=== PATIENT | male | born 1955 | race Caucasian/White ===

== ENCOUNTER → 2016-02-22 | Outpatient (CLI) | payer OTHER, MEDICARE ==
[~2016-02-22] MED LIST: IOPAMIDOL (ISOVUE 370) 100 ML BTL IV ONE
[2016-02-22 15:02] LABS: CREATININE 1.1 mg/dL (0.7-1.3); GLOMERULAR FILTRATION RATE > 60
--- NOTE | 2016-02-22 17:31 | CT ---
CT Angiogram of the Abdomen and Pelvis, With Bilateral Lower Extremity Runoff Angiogram Indication: PVD, with severe claudication and noncompressible ABIs. Technique: 1.25-mm thin axial images are performed from the lung bases to the ankles during intraven ous contrast injection of 100 mL of Isovue-370. Coronal and parasagittal reformatted images are revi ewed on a separate workstation. Dose reduction techniques were utilized. Comparison: None. Findings CT Angiogram of the Abdomen and Pelvis: The suprarenal abdominal aorta is unremarkable. There is mi ld narrowing of the celiac access. The SMA is patent. The renal arteries are patent. The infrarena l abdominal aorta is patent, with some circumferential calcification. The ALEXIS is patent. The right common iliac artery is patent. The right internal iliac artery is patent. The right exter nal iliac artery is patent. There are surgical changes in the groin. Left common iliac artery, internal iliac artery, and external iliac artery are patent. Runoff Angiogram Right runoff: There is a high-grade stenosis of the profunda femoral artery origin from eccentric ca lcification. The superficial femoral artery origin is occluded. There is a ring fem distal bypass g raft that ties into the above-knee popliteal artery. The above-knee popliteal artery is patent. The re are some diffuse atherosclerotic changes of the popliteal artery, which is highly stenotic in the vessel above the knee joint. The below-knee popliteal artery is patent. There is diffuse calcified disease in the runoff vessel, with two-vessel runoff on the delayed imaging via the PT and peroneal. The AP is occluded. The peroneal reconstitutes the dorsalis pedis. Left runoff: The left common femoral artery is diffusely calcified. There is a stent from the SFA o rigin through the proximal popliteal. The stent appears highly stenotic at its origin and highly kaiden notic at the distal end. There are 2 or 3 overlapping stents throughout the SFA. Flow within the st ent or in stent restenosis is not definitely present, however, the stent obscures some of the intralu mayo fine detail. Flow in the popliteal artery is poor even on the delayed films. Below-knee runof f is diffusely calcified, however, there is flow in the PT and the AT on the reconstructed imaging an d a very small but patent peroneal artery. CT Abdomen and Pelvis: The lung bases are clear. There is fatty infiltration of the liver. The por enrique vein is patent. The spleen is unremarkable. The pancreas is unremarkable. The adrenals and kid neys are within normal limits. Small bowel and colon are unremarkable. There is an ileostomy in the right lower quadrant, and the rectum and sigmoid have been previously resected. The bones exhibit d egenerative changes. 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 Impressions 1. No evidence of inflow disease. 2. The right femoral-popliteal bypass has some mild narrowing at the ostia. Below the anastomosis i s a high-grade stenosis in the popliteal artery and diffusely diseased two-vessel runoff via the post erior tibial and peroneal artery. 3. There is diffuse stenting of the SFA, with a high-grade stenosis at or above the ostia of the painting dem stents and just beyond the outflow in the upper popliteal artery. Below-knee runoff is small and diffusely diseased but remains three-vessel to the foot.
== END ==
LOC: FIMAGING 13:54
PROVIDERS: ATTEND Internal Medicine Interventional Cardiology
DX: I74.3 Embolism and thrombosis of arteries of the lower extremities (principal); I73.9 Peripheral vascular disease, unspecified
CPT/HCPCS: 75635; Q9967

== ENCOUNTER 2016-04-01 07:04 | Observation (INO) | payer OTHER, MEDICARE ==
[2016-04-01] MEDS ORDERED: DIAZEPAM 5 MG TAB PO ONE (07:16)
[2016-04-01] MEDS ORDERED: ASPIRIN EC 325 MG TAB PO ONE ×2 (07:16→07:48)
[2016-04-01] MEDS ORDERED: FAMOTIDINE 20 MG TAB PO ONE (07:16)
[2016-04-01] MEDS ORDERED: NS 1,000 ML IV ONE (07:16)
[2016-04-01] MEDS ORDERED: diphenhydrAMINE 25 MG CAP PO ONE ×2 (07:16→07:47)
--- NOTE | 2016-04-01 07:41 | CPEKG ---
Heart Rate: 81 RR Interval: 741 P-R Interval: 180 QRSD Interval: 84 QT Interval: 376 QTC Interval: 437 P [place]: 14 QRS [place]: 50 T Wave [place]: 50 EKG Severity - ABNORMAL ECG - EKG Impression: SINUS RHYTHM EKG Impression: ST ELEVATION SUGGESTS PERICARDITIS Electronically Signed By: Evan Bright 01-Apr-2016 08:26:32
[2016-04-01] MEDS ORDERED: FAMOTIDINE 20 MG TAB ONE (07:47)
[2016-04-01] MEDS ORDERED: DIAZEPAM 5 MG TAB ONE (07:48)
[2016-04-01 08:12] LABS: % IMMATURE GRANULYOCYTES 0.6 % (0.0-1.1); ABSOLUTE IMMATURE GRANULOCYTES 0.04 10^3/uL (0.00-0.10); ADD DIFF? NO; ADD MORPH? NO; ADD SCAN? NO; ATYPICAL LYMPHOCYTE FLAG 0 (0-99); FRAGMENT RBC FLAG 0 (0-99); HEMATOCRIT 38.1 % (40.0-51.0); HEMOGLOBIN 12.6 g/dL (13.7-17.5); LEFT SHIFT FLG 0 (0-99); LIPEMIA HEMOLYSIS FLAG 80 (0-99); MEAN CELL HEMOGLOBIN CONCENTR. 33.1 g/dL (32.4-36.7); MEAN CELL VOLUME 87.6 fL (81.5-99.8); MEAN PLATELET VOLUME 11.7 fL (8.7-11.7); PLATELET CLUMPS FLAG 0 (0-99); PLATELET COUNT 118 10^3/uL (150-400); RED BLOOD CELL COUNT 4.35 10^6/uL (4.40-6.38); RED CELL DISTRIBUTION WIDTH 13.2 % (11.5-15.2)
[2016-04-01 08:22] LABS: INR 1.05 (0.83-1.16); PROTIME(PATIENT) 13.6 SEC (12.0-15.0)
[2016-04-01 09:01] LABS: ANION GAP 13 mEq/L (8-16); CALCIUM 10.6 mg/dL (8.5-10.4); CARBON DIOXIDE 19 mEq/l (22-31); CHLORIDE 107 mEq/L (97-110); CHOLESTEROL 117 mg/dL (140-220); CHOLESTEROL/HDL RATIO 4.18 RATIO (1.00-4.97); CREATININE 0.9 mg/dL (0.7-1.3); GLOMERULAR FILTRATION RATE > 60; GLUCOSE 253 mg/dL (70-100); HIGH DENSITY LIPOPROTEIN 28 mg/dL (40-65); LDL/HDL RATIO 0.46 RATIO (1.00-3.64); LOW DENSITY LIPOPROTEIN 13 mg/dL (80-100); MAGNESIUM 1.2 mg/dL (1.6-2.3); NON-HIGH DENSITY LIPOPROTEIN 89 mg/dL (90-129); POTASSIUM 4.6 mEq/L (3.5-5.2); SODIUM 139 mEq/L (134-144); TRIGLYCERIDE 382 mg/dL (40-150); VERY LOW DENSITY LIPOPROTEINS 76 mg/dL (8-25)
[2016-04-01] MEDS ORDERED: LIDOCAINE 1% 30 ML SDV ONE ×2 (09:35→12:02)
[2016-04-01] MEDS ORDERED: MIDAZOLAM 2 MG/2 ML VIAL ONE ×2 (09:35→10:57)
[2016-04-01] MEDS ORDERED: fentaNYL 100 MCG/2 ML INJ ONE ×2 (09:35→10:57)
[2016-04-01] MEDS ORDERED: IOPAMIDOL (ISOVUE-300) 200 ML BTL IV ONE ×3 (09:36→12:17)
[2016-04-01] MEDS ORDERED: HEPARIN 10,000 UNIT/10 ML MDV ONE ×2 (10:00→11:19)
--- NOTE | 2016-04-01 10:03 | SUROPNOTE ---
[facility] Operative Report - Surgery Date of Procedure: 04/01/16 Indication: This patient is a 60 year old man, with a history of severe peripheral vascular disease status-post left SFA stenting in 03/2013 and subsequent right femoral-popliteal bypass, profundoplasty, and femoral endarterectomy, presenting with moderate-severe lifestyle limiting claudication symptoms in bilateral lower extremities, somewhat worse in the left lower extremity. Patient states he went for a walk the other day and had to be picked up by a friend due to severe cramping in his left calf. Abdomen CTA with bilateral lower extremity runoff demonstrated that the right femoral-popliteal bypass has some mild narrowing at the ostia and below the anastomosis is a high- grade stenosis in the popliteal artery and diffusely diseased two-vessel runoff via the posterior tibial and peroneal artery. Furthermore, there is diffuse stenting of the SFA, with a high-grade stenosis at or above the ostia of the tandem stents and just beyond the outflow in the upper popliteal artery. Peripheral intervention will be attempted due to lifestyle limiting claudication and CTA evidence of recurrent high-grade stenosis in bilateral lower extremities. Procedures performed: 1. Right femoral access 2. Left iliac and femoral angiography via contralateral approach 3. Left lower extremity runoff angiography via contralateral approach 4. Jetstream atherectomy and drug-coated balloon angioplasty of the distal left superficial femoral artery and proximal popliteal artery. 5. Drug-coated balloon angioplasty of the distal left common femoral artery 6. Left femoral access 7. Right iliac and femoral angiography via contralateral approach 8. Right lower extremity runoff angiography via contralateral approach 9. Drug-coated balloon angioplasty of the distal right superficial femoral artery and proximal popliteal artery. Description of procedure: Description, risks, benefits and alternatives were discussed in detail. Informed consent was obtained. The patient was brought to the catheterization laboratory where a timeout was performed. The both groins were sterilely prepped and draped. 2% lidocaine utilized for local anesthetic. A 6-[place] hemostatic sheath placed right femoral artery utilizing modified Seldinger technique. A 6-[place] ALEXIS catheter was then placed into the right iliofemoral system and engaged the left common iliac. A stiff-angled Glidewire was placed. Intravenous heparin was administered. The ALEXIS catheter was exchanged for a 5- [place] Straight Flush catheter. Angiography was then performed via the straight flush catheter, which demonstrated moderate-severe disease in the distal common femoral, proximal to the left SFA stent. Left lower extremity runoff angiography was performed with Power Injection through the straight flush catheter, which demonstrated a heavily calcified distal left SFA/proximal popliteal lesion. Through the straight flush catheter, a Super-Stiff Amplatz wire was placed and the straight flush catheter was removed. The sheath was exchanged for a 7-[place] angled up-and-over sheath, however the sheath would not advance secondary to atherosclerotic disease. An 8- [place] dilator was utilized and instead a 7-[place] African Cook 55cm Flexor Check-Flow introducer was placed in the left SFA. Next, the decision was made to perform Jetstream Atherectomy of the heavily calcified distal SFA lesion. A short Samurai wire was placed in the popliteal. A SpiderFX embolic protection device was advanced over the Samurai wire and was positioned in the popliteal, distal to the disease area. Samurai wire was removed and the SpiderFX was deployed. Then, the Jetstream XC catheter was placed and atherectomy was performed in the distal SFA/proximal popliteal in both the blades down and blades up configuration until there was no drop in r.p.m. The atherectomy catheter was then removed. Repeat angiography was performed, which demonstrated satisfactory result on the heavily calcified lesion. Next, a 6.0mm x 100mm Lutonix 035 drug coated balloon was placed in the distal SFA/proximal popliteal to cover the area of disease. This was inflated to 7 atmospheres for three minutes. Balloon was removed. Repeat angiography demonstrated excellent result. Following this, attention was turned to the proximal lesion, localized to the distal left common femoral artery. The SpiderFX filter was retrieved with the filter basket retrieval sheath and the filter was removed. Amplatz wire was re-introduced and placed into the left SFA. The sheath was pulled back. A 7.0mm x 40mm Lutonix 035 drug-coated balloon was positioned to cover the area of proximal disease. This was inflated to 7 atmospheres for three minutes. Balloon was removed. The Straight Flush catheter was re-introduced and repeat runoff angiography was performed with power injection, which demonstrated excellent result and no additional areas of severe disease. Amplatz wire was re-introduced. The straight flush catheter was removed. The up-and-over sheath was removed and exchanged for a short 8-[place] sheath. Next, attention was turned to the left groin to prepare for right lower extremity peripheral intervention. 2% lidocaine utilized for local anesthetic. A 6-[place] hemostatic sheath placed left femoral artery utilizing modified Seldinger technique. A 6-[place] ALEXIS catheter was then placed into the left iliofemoral system and engaged the right common iliac. A stiff-angled Glidewire was placed. The ALEXIS catheter was exchanged for a 5-[place] Straight Flush catheter. The catheter was advanced to the femoral-popliteal bypass graft. Runoff angiography was then performed via the straight flush catheter with power injection, which demonstrated a high-grade stenosis in the distal SFA, distal to the graft anastomosis. There is approximately 60% disease proximal to the bypass graft, however this appeared to be mild by CT and is close to the right groin sheath site, making intervention challenging at this time. Decision to not intervene on the proximal lesion was felt to be reasonable, as it appears mild by CT and angiography. The lesion appeared amenable to drug- coated balloon angioplasty. Through the straight flush catheter, a Super-Stiff Amplatz wire was placed and the straight flush catheter was removed. The sheath was exchanged for a 6-[place] straight up-and-over sheath. A diagnostic 6-Central African Evert Right-4 catheter was utilized to help advance the wire. The wire was advanced distal to the knee. JR4 catheter was removed. A 6mm x 100mm Lutonix 035 drug-coated balloon was chosen and positioned over the lesion in the right distal SFA. This was inflated to 7 atmospheres for three minutes. Balloon was removed. Straight Flush catheter was reintroduced over the wire. Repeat angiography was performed through the Straight Flush catheter, demonstrating satisfactory result. The up-and-over sheath was removed and exchanged for a short 6-[place] sheath. Protamine was administered to reverse heparin. Both groin sheaths were removed under manual pressure. Findings: 1. Hemodynamics: Aortic pressure 128/64, mean of 83. 2. Left lower extremity runoff angiography: The left common femoral artery contains a calcified eccentric 70% stenosis. The stents in the left SFA are widely patent with up to 20% stenosis in the distal stent. There is a long, eccentric calcified 80-90% stenosis in the unstented distal SFA extending into the proximal popliteal. The tibioperoneal trunk is unobstructed. The anterior tibial and posterior tibials are patent. There is diffuse distal posterior tibial disease. Peroneal vessel ends at the mid calf 3. Right lower extremity runoff angiography: There is a 60% stenosis in the proximal SFA at the femoral-popliteal graft anastomosis. The SFA is totally occluded and fills from the patent femoral-popliteal graft. At the distal end of the femoral-popliteal graft anastomosis, extending from the distal SFA to the popliteal, is a calcified eccentric 80% stenosis. The tibioperoneal trunk contains 60% disease. 4. Percutaneous intervention: Following atherectomy and drug coated balloon angioplasty (as described above), there is no residual stenosis in the left common femoral or the left distal superficial femoral artery. Following drug- coated balloon angioplasty in the distal right SFA and proximal popliteal, there is approximately 30% residual stenosis with satisfactory result in this vessel. Overall Impression: 1. Long, eccentric calcified 80-90% stenosis in the unstented distal SFA extending into the proximal popliteal, treated with Jet Stream atherectomy and drug-coated balloon angioplasty, with 0% residual stenosis post-intervention. 2. Left common femoral artery calcified eccentric 70% stenosis, treated with drug-coated balloon angioplasty, with 0% residual stenosis post-intervention. 3. Calcified eccentric 80% stenosis at the distal end of the femoral-popliteal graft anastomosis, extending from the distal SFA to the popliteal, treated with drug-coated balloon angioplasty, with approximately 30% residual stenosis post- intervention. 4. 60% stenosis in the proximal SFA at the femoral-popliteal graft anastomosis , which appeared mild by CT. Intervention was not performed due to the mild severity of the disease and the location of the disease close to the right groin sheath site. Plan: 1. Continue aggressive risk modification. 2. Close clinical follow up. If the patient continues to experience claudication symptoms, then intervention can be considered of the proximal right SFA. 3. Walking program. 4. Follow patient symptomatically and with intermittent ankle brachial index. Portions of this report were documented by a medical writer. I have reviewed this report and agree with the documentation. Report scribed for Dr. Levar Galeana. Report scribed by Claudia Bedolla.
[2016-04-01] MEDS ORDERED: VERAPAMIL 5 MG/2 ML VIAL ONE (11:11)
[2016-04-01] MEDS ORDERED: NITROGLYCERIN/D5W/250 ML BOTTLE IV ONE (11:12)
[2016-04-01] MEDS ORDERED: PROTAMINE SULFATE 50 MG/5 ML VIAL IVP ONE (11:19)
[2016-04-01] MEDS ORDERED: MONTELUKAST SODIUM 10 MG TAB PO PRN (13:31)
[2016-04-01] MEDS ORDERED: CLOPIDOGREL BISULFATE 75 MG TAB ONE (13:32)
[2016-04-01] MEDS ORDERED: NITROGLYCERIN 0.4 MG BTL SL PRN (13:33)
[2016-04-01] MEDS ORDERED: OXYCODONE/APAP 5/325 TAB PO PRN (13:33)
[2016-04-01] MEDS ORDERED: HYDROCODONE/APAP 5/325 TAB PO PRN (13:33)
[2016-04-01] MEDS ORDERED: ATROPINE SULFATE 1 MG/10 ML SYR IVP PRN (13:33)
[2016-04-01] MEDS ORDERED: LORazepam 2 MG/ML INJ IVP PRN (13:33)
[2016-04-01] MEDS ORDERED: TEMAZEPAM 15 MG CAP PO PRN (13:33)
[2016-04-01] MEDS ORDERED: ONDANSETRON 4 MG/2 ML VIAL IVP PRN (13:33)
[2016-04-01] MEDS ORDERED: 1/2 NS 1,000 ML IV SCH (14:00)
[2016-04-01] MEDS ORDERED: PROTOCOL MAGNESIUM 1 DOSE IV PRN (15:33)
[2016-04-01] MEDS ORDERED: MAGNESIUM SULF 2 GM/WATER 50 ML IV ONE (15:40)
[2016-04-01] MEDS ORDERED: PREGABALIN 100 MG CAP PO SCH (16:00)
[2016-04-01] MEDS: INSULIN LISPRO 100 UNIT/ML SC SCH ×2 (16:33→19:57)
[2016-04-01] MEDS: PRASUGREL HCL 10 MG TAB PO SCH (16:33)
[2016-04-01] MEDS: OXYCODONE/APAP 5/325 TAB PO PRN ×2 (16:33→22:10)
[2016-04-01] MEDS ORDERED: TICAGRELOR 90 MG TAB PO SCH (21:00)
[2016-04-01] MEDS ORDERED: INSULIN GLARGINE HUM REC ANLOG 40 UNIT SQ SCH (21:00)
[2016-04-01] MEDS ORDERED: INSULIN GLARGINE 100 UNITS/ML SYRINGE SC SCH (21:00)
[2016-04-01] MEDS: traZODone 50 MG TAB PO SCH ×2 (21:27→22:10)
[2016-04-01] MEDS: FLUTICASONE/SALMETER 250/50MCG DISKUS IH SCH (21:42)
[2016-04-01] MEDS: PREGABALIN 100 MG CAP PO SCH (22:09)
[2016-04-02 03:48] VITALS: O2SAT 92
[2016-04-02 05:34] LABS: % IMMATURE GRANULYOCYTES 0.3 % (0.0-1.1); ABSOLUTE IMMATURE GRANULOCYTES 0.02 10^3/uL (0.00-0.10); ADD DIFF? NO; ADD MORPH? NO; ADD SCAN? NO; ATYPICAL LYMPHOCYTE FLAG 0 (0-99); FRAGMENT RBC FLAG 0 (0-99); HEMATOCRIT 34.5 % (40.0-51.0); HEMOGLOBIN 11.2 g/dL (13.7-17.5); LEFT SHIFT FLG 0 (0-99); LIPEMIA HEMOLYSIS FLAG 80 (0-99); MEAN CELL HEMOGLOBIN 29.9 pg (27.9-34.1); MEAN CELL HEMOGLOBIN CONCENTR. 32.5 g/dL (32.4-36.7); MEAN PLATELET VOLUME 11.9 fL (8.7-11.7); PLATELET CLUMPS FLAG 10 (0-99); PLATELET COUNT 94 10^3/uL (150-400); RED BLOOD CELL COUNT 3.75 10^6/uL (4.40-6.38); RED CELL DISTRIBUTION WIDTH 13.7 % (11.5-15.2)
[2016-04-02 05:53] LABS: ALBUMIN 3.5 g/dL (3.5-5.0); ANION GAP 7 mEq/L (8-16); ASPARTATE AMINOTRANSFERASE 105 IU/L (17-59); BILIRUBIN,TOTAL 0.5 mg/dL (0.1-1.4); CALCIUM 8.7 mg/dL (8.5-10.4); CARBON DIOXIDE 23 mEq/l (22-31); CHLORIDE 105 mEq/L (97-110); CREATININE 0.9 mg/dL (0.7-1.3); GLOMERULAR FILTRATION RATE > 60; GLUCOSE 249 mg/dL (70-100); LACTATE DEHYDROGENASE 652 IU/L (313-618); MAGNESIUM 1.3 mg/dL (1.6-2.3); POTASSIUM 5.4 mEq/L (3.5-5.2); SODIUM 135 mEq/L (134-144)
[2016-04-02 07:38] VITALS: BP 136/63; PULSE 70; RESP 12; TEMP 97.9
[2016-04-02] MEDS ORDERED: MAGNESIUM SULF 2 GM/WATER 50 ML IV ONE (08:05)
[2016-04-02] MEDS: INSULIN LISPRO 100 UNIT/ML SC SCH (08:25)
[2016-04-02] MEDS: PRASUGREL HCL 10 MG TAB PO SCH (08:25)
[2016-04-02] MEDS: PREGABALIN 100 MG CAP PO SCH (08:25)
[2016-04-02] MEDS ORDERED: ASPIRIN EC 81 MG TAB PO SCH (09:00)
[2016-04-02] MEDS ORDERED: PRASUGREL HCL 10 MG TAB PO SCH (09:00)
[2016-04-02] MEDS ORDERED: INSULIN GLARGINE 100 UNITS/ML SYRINGE SC SCH (09:00)
[2016-04-02] MEDS ORDERED: INSULIN GLARGINE HUM REC ANLOG 16 UNIT SQ SCH (09:00)
[2016-04-02] MEDS ORDERED: NEBIVOLOL HCL 5 MG TAB PO SCH (09:00)
[2016-04-02] MEDS ORDERED: ATORVASTATIN CALCIUM 40 MG TAB PO SCH (09:00)
--- NOTE | 2016-04-02 09:24 | CPEKG ---
Heart Rate: 57 RR Interval: 1053 P-R Interval: 208 QRSD Interval: 108 QT Interval: 428 QTC Interval: 417 P [place]: -2 QRS [place]: 42 T Wave [place]: 52 EKG Severity - BORDERLINE ECG - EKG Impression: SINUS RHYTHM EKG Impression: DIFFUSE ST ELEVATION ?PERICARDITIS Electronically Signed By: Evan Bright 01-Apr-2016 23:47:49
[2016-04-02] MEDS: FLUTICASONE/SALMETER 250/50MCG DISKUS IH SCH (09:49)
[2016-04-02] MEDS: OXYCODONE/APAP 5/325 TAB PO PRN (09:52)
--- NOTE | 2016-04-02 11:38 | GDS ---
[f rep st] DISCHARGE SUMMARY DISCHARGE DIAGNOSES: 1. Severe left lower extremity claudication, moderate right lower extremity claudication. 2. Peripheral vascular disease status post previous left SFA stent and right femoral popliteal bypa ss. 3. Diabetes. 4. Hyperlipidemia. 5. Hypertension. 6. Previous cigarette smoking. 7. Carotid artery disease. 8. Peripheral neuropathy. 9. Elevated liver function tests; etiology unknown. PROCEDURES: 1. Bilateral femoral artery access. 2. Left lower extremity runoff angiography. 3. Jet stream atherectomy and drug coated balloon angioplasty of distal left superficial femoral ar ayo and proximal popliteal artery. 4. Drug coated balloon angioplasty of left common femoral artery and proximal left superficial femo ral artery. 5. Right iliac and lower extremity angiography with runoff. 6. Drug coated balloon angioplasty of distal right superficial femoral artery and proximal poplitea l artery. HOSPITAL COURSE: This 60-year-old man had previous left SFA stenting and right femoral/popliteal by pass approximately 3 years ago. He also had profundoplasty and femoral endarterectomy on the right. He has done extremely well until recently when he developed lifestyle-limiting left greater than r ight recurrent claudication. CT angiography demonstrated new progressive disease which was quite se ortiz distal to the stent in the left SFA extending into the popliteal. There was also some progress eduardo disease in the left common femoral, extending into the proximal stent in the left SFA. On the r ight side, the femoral popliteal bypass was patent with new progressive, high-grade disease in the d istal SFA and proximal popliteal. There was also moderate disease at the ostium of the femoral-popl iteal bypass which did not appear to be flow limiting. The patient was brought to the hospital for percutaneous intervention. Initial right femoral access with contralateral approach to the left leg was achieved, confirming findings of CT angiogram. For details please see the catheterization report. Using filter wire distal protection with a spider F X filter, patient had jet stream atherectomy in the SFA and popliteal. There was extensive plaque c aptured by the filter. Patient then had 6 mm x 100 mm drug coated balloon, and an excellent result with no residual stenosis and no complication. The common femoral lesion extending into the proxima l superficial femoral was treated with a 7 mm x 40 mm drug coated balloon with excellent result. left femoral access was obtained with contralateral approach to the right. Angiography was perfo rmed, and 6 mm x 100 mm drug coated balloon was used in the SFA and proximal popliteal again with an excellent result. The ostial graft disease and profunda disease were felt to be noncritical and we re not treated. Patient was recovered overnight with stable groin and resolution of his claudicatio n by at least 90% with walking. He was quite happy. He was then discharged. Of note, his laborato ry tests showed some elevation of liver function tests which appears to be a chronic intermittent pr oblem which will need outpatient followup. DISCHARGE MEDICATIONS: These are completely unchanged from his home medication. His metformin is o n hold for 72 hours. He is on Effient 10 mg daily which we will continue for 1 month. Long-term du al anti-platelet therapy is likely not necessary at this point. FOLLOWUP PLANS: He should be seen in the office within 1 week. We should perform repeat complete l iver function testing and review his chart for further workup of his liver function test abnormality . His lipids are under control with an LDL of 13. /[id number]/MODL
== END 2016-04-02 12:26 | disposition home or self-care (01) ==
LOC: FCATH 07:04 → F2W 09:47 → UNDOADMOB 09:47 → F2W 14:50
PROVIDERS: ADMIT Internal Medicine Interventional Cardiology; ATTEND Internal Medicine Interventional Cardiology
PROC: 047L3Z1 Dilation of Left Femoral Artery using Drug-Coated Balloon, Percutaneous Approach (ICD-10-PCS; principal; 2016-04-01)
PROC: 047N3Z1 Dilation of Left Popliteal Artery using Drug-Coated Balloon, Percutaneous Approach (ICD-10-PCS; 2016-04-01)
PROC: 04CL3ZZ Extirpation of Matter from Left Femoral Artery, Percutaneous Approach (ICD-10-PCS; 2016-04-01)
PROC: 04CN3ZZ Extirpation of Matter from Left Popliteal Artery, Percutaneous Approach (ICD-10-PCS; 2016-04-01)
PROC: 047K3Z1 Dilation of Right Femoral Artery using Drug-Coated Balloon, Percutaneous Approach (ICD-10-PCS; 2016-04-01)
PROC: 047M3Z1 Dilation of Right Popliteal Artery using Drug-Coated Balloon, Percutaneous Approach (ICD-10-PCS; 2016-04-01)
DX: I70.213 Atherosclerosis of native arteries of extremities with intermittent claudication, bilateral legs (principal); I73.9 Peripheral vascular disease, unspecified; R94.5 Abnormal results of liver function studies; I70.92 Chronic total occlusion of artery of the extremities; E78.5 Hyperlipidemia, unspecified; I10 Essential (primary) hypertension; I77.9 Disorder of arteries and arterioles, unspecified; G60.9 Hereditary and idiopathic neuropathy, unspecified; I25.10 Atherosclerotic heart disease of native coronary artery without angina pectoris; Z79.4 Long term (current) use of insulin; E11.40 Type 2 diabetes mellitus with diabetic neuropathy, unspecified; Z82.49 Family history of ischemic heart disease and other diseases of the circulatory system; G47.33 Obstructive sleep apnea (adult) (pediatric); Z87.891 Personal history of nicotine dependence; Z85.038 Personal history of other malignant neoplasm of large intestine
CPT/HCPCS: 37224; 37225; 75716; 93005; C1724; C1769; C1884; C2623; J1644; J1815; J2250; J2720; J3010; Q9967

== ENCOUNTER 2016-09-27 14:22 | Inpatient (IN) | payer OTHER, MEDICARE ==
--- NOTE | 2016-09-27 14:53 | CPEKG ---
Heart Rate: 105 RR Interval: 571 P-R Interval: 160 QRSD Interval: 84 QT Interval: 352 QTC Interval: 466 P [place]: 11 QRS [place]: 48 T Wave [place]: 74 EKG Severity - OTHERWISE NORMAL ECG - EKG Impression: SINUS TACHYCARDIA Electronically Signed By: Capri Curiel 27-Sep-2016 23:05:49
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
[2016-09-27] MEDS ORDERED: NS 500 ML IV ONE (15:11)
[2016-09-27 15:48] LABS: % IMMATURE GRANULYOCYTES 0.5 % (0.0-1.1); ABSOLUTE IMMATURE GRANULOCYTES 0.05 10^3/uL (0.00-0.10); ADD DIFF? NO; ADD MORPH? NO; ADD SCAN? NO; ATYPICAL LYMPHOCYTE FLAG 0 (0-99); FRAGMENT RBC FLAG 0 (0-99); HEMATOCRIT 35.3 % (40.0-51.0); HEMOGLOBIN 11.4 g/dL (13.7-17.5); LEFT SHIFT FLG 0 (0-99); LIPEMIA HEMOLYSIS FLAG 80 (0-99); MEAN CELL HEMOGLOBIN 29.4 pg (27.9-34.1); MEAN CELL HEMOGLOBIN CONCENTR. 32.3 g/dL (32.4-36.7); PLATELET CLUMPS FLAG 0 (0-99); PLATELET COUNT 218 10^3/uL (150-400); RED BLOOD CELL COUNT 3.88 10^6/uL (4.40-6.38); RED CELL DISTRIBUTION WIDTH 14.6 % (11.5-15.2)
[2016-09-27 15:55] LABS: APTT 23.2 SEC (23.0-38.0); INR 1.04 (0.83-1.16); PROTIME(PATIENT) 13.5 SEC (12.0-15.0)
[2016-09-27 15:56] LABS: ALANINE AMINOTRANSFERASE 67 IU/L (21-72); ALBUMIN 4.2 g/dL (3.5-5.0); ALKALINE PHOSPHATASE 136 IU/L (38-126); ANION GAP 20 mEq/L (8-16); ASPARTATE AMINOTRANSFERASE 74 IU/L (17-59); BILIRUBIN,TOTAL 0.6 mg/dL (0.1-1.4); CALCIUM 9.9 mg/dL (8.5-10.4); CARBON DIOXIDE 15 mEq/l (22-31); CHLORIDE 105 mEq/L (97-110); CREATININE 1.4 mg/dL (0.7-1.3); GLOMERULAR FILTRATION RATE 52; GLUCOSE 230 mg/dL (70-100); POTASSIUM 5.1 mEq/L (3.5-5.2); SODIUM 140 mEq/L (134-144); TOTAL PROTEIN 6.9 g/dL (6.3-8.2)
[2016-09-27] MEDS ORDERED: ONDANSETRON 4 MG/2 ML VIAL IVP ONE (16:26)
[2016-09-27 16:34] LABS: BILIRUBIN-CONJUGATED 0.5 mg/dL (0.0-0.5); BILIRUBIN-UNCONJUGATED 0.1 mg/dL (0.0-1.1)
[2016-09-27] MEDS ORDERED: IOPAMIDOL (ISOVUE-300) 100 ML BTL ONE (16:43)
[2016-09-27] MEDS ORDERED: NS 500 ML IV SCH (17:00)
[2016-09-27] MEDS ORDERED: ACETAMINOPHEN 650 MG SUPP PR PRN (17:02)
[2016-09-27] MEDS ORDERED: ONDANSETRON 4 MG/2 ML VIAL IVP PRN (17:02)
[2016-09-27] MEDS ORDERED: NS 1,000 ML IV SCH (17:15)
[2016-09-27] MEDS ORDERED: FAMOTIDINE 20 MG/NACL 50 ML IV ONE (17:18)
[2016-09-27] MEDS ORDERED: PANTOPRAZOLE SODIUM 80 MG in NS 100 ML IV ONE (17:18)
[2016-09-27] MEDS ORDERED: ERYTHROMYCIN LACTOBIONATE 250 MG in NS 100 ML IV ONE (17:20)
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
[2016-09-27] MEDS ORDERED: PROPOFOL/EMULSION 500 MG/50 ML BOTTLE IV ONE (20:06)
[2016-09-27] MEDS ORDERED: MIDAZOLAM 2 MG/2 ML VIAL ONE (20:16)
[2016-09-27] MEDS ORDERED: LR 500 ML IV PRN (20:36)
[2016-09-27] MEDS ORDERED: NALOXONE HCL 0.4 MG/ML INJ IVP PRN (20:36)
[2016-09-27] MEDS ORDERED: fentaNYL 100 MCG/2 ML INJ IVP PRN (20:36)
--- NOTE | 2016-09-27 20:38 | POSTANESTH ---
Post Anesthetic Evaluation Cardiovascular Status: Similar to Pre-Op Cond, Tx Hyper/Hypo-tension Respiratory Status: Normal, Stable Level of Consciousness/Mental Status: Can Participate in Eval Pain Control: Adequate, Prn Tx Ordered Nausea/Vomiting Control: Adequate, Prn Tx Ordered Complications Possibly Related to Anesthesia: None Noted
[2016-09-27] MEDS ORDERED: DULoxetine 20 MG CAP PO SCH (21:00)
[2016-09-27] MEDS ORDERED: GOLYTELY 4000 ML BTL PO ONE (21:30)
--- NOTE | 2016-09-27 22:41 | SOAPPROG ---
SOAP Progress Note Assessment/Plan: Assessment: Plan: 09/27/16 22:40 GI note See dictated consult and procedure note. No cause of bleeding noted on EGD. No blood visualized. Will proceed with colonoscopy in am. R/b/a discussed Objective: Vital Signs Temp Pulse Resp BP Pulse Ox 36.5 C 81 17 100/48 L 96 09/27/16 22:12 09/27/16 22:12 09/27/16 22:12 09/27/16 22:12 09/27/16 22:12 09/26/16 09/27/16 09/28/16 05:59 05:59 05:59 Intake Total 500 Balance 500 PT 13.5 SEC (12.0-15.0) 09/27/16 14:40 INR 1.04 (0.83-1.16) 09/27/16 14:40 ICD10 Worksheet Patient Problems: Problems Problem Status Onset Peripheral vascular disease Acute Hypotension Acute GI bleed Acute
[2016-09-27] MEDS ORDERED: D50W 25 GM/50 ML SYR IVP PRN (22:56)
[2016-09-27] MEDS ORDERED: INSULIN GLARGINE 100 UNITS/ML SYRINGE SC ONE (23:15)
[2016-09-27] MEDS: OXYCODONE/APAP 5/325 TAB PO PRN (23:21)
[2016-09-27] MEDS: PREGABALIN 100 MG CAP PO SCH ×2 (23:31→23:38)
--- NOTE | 2016-09-27 23:34 | GHP ---
[f rep st] HISTORY AND PHYSICAL DATE OF ADMISSION: 09/27/2016 CHIEF COMPLAINT: Bloody ostomy output. HISTORY OF PRESENT ILLNESS: A 60-year-old male with a history of colon cancer, status post colostom y, who presents with bloody output from his ostomy bag that began approximately 6 p.m. the evening p rior to presentation. The patient reports that he has had several episodes of slightly bloody outpu t, spontaneously resolved on its own, over the course of his ostomy life. He notes that he was havi ng persistent bloody output, reporting 4 full bags of blood, in his ostomy before presenting. With that he was experiencing some lightheadedness. He denied chest pain associated with this. Denied p alpitations. Denied shortness of breath. Denied abdominal pain, with the exception of slight tende rness at the superior margin of his ostomy. He is actively reporting lower extremity pain, which is intermittent for him. PAST MEDICAL HISTORY: 1. Colon cancer, status post colostomy. 2. Severe peripheral vascular disease, status post both femoral-popliteal bypass and recent stentin g. 3. Diabetes. 4. Hyperlipidemia. 5. Hypertension. 6. Carotid artery disease. 7. Peripheral neuropathy. SOCIAL HISTORY: Negative for active tobacco. He does have a tobacco history. No alcohol, illicit drugs or marijuana. FAMILY HISTORY: Negative for peripheral vascular disease. REVIEW OF SYSTEMS: A 10-point review of systems is negative, with the exception of that reported in the HPI. ADVANCED DIRECTIVES: The patient wishes to be full cor, full tube. His girlfriend, Yvette, would be his medical decision maker. PHYSICAL EXAMINATION: VITAL SIGNS: Blood pressure 84/40, heart rate in the 100s at presentation, b reathing 17 per minute, 96% on room air, 36.5. GENERAL: This is a pleasant, middle-aged male in no acute distress. HEENT: Notable for dry mucous membranes. Eye exam is negative for any icterus. CARDIAC: The patient has regular rate and rhythm. PULMONARY: Good respiratory effort. Clear to a uscultation bilaterally. GASTROINTESTINAL: Positive bowel sounds. Abdomen is soft. Ostomy output does appear bloody. MUSCULOSKELETAL: Negative for any lower extremity edema. Pulses are difficul t to feel pedally, but the extremities are warm. SKIN: Negative for any rashes. NEUROLOGIC: He i s alert and oriented x3. PSYCHIATRIC: He is pleasant and cooperative on interview and examination. DATA: White count 9.1, hematocrit 35, hemoglobin 11 at presentation, platelet count of 218. Sodium 140, creatinine 1.4, BUN 31, blood glucose 230, alkaline phosphatase 136, AST 74. Blood occult is positive. CT of the abdomen, which I personally reviewed and interpreted: Shows no acute intraabdominal abnor malities. Radiology comments: Hint of circumferential wall thickening at the outside portion of the ostomy. ASSESSMENT AND PLAN: This is a 60-year-old male presenting with bright red blood per ostomy. 1. Acute gastrointestinal bleed. Bloody output has been persistent. The patient is presenting wit h tachycardia and hypotension, certainly concerning for a rapid bleed. The patient was provided wit h IV proton pump inhibitor and taken directly to the endoscopy suite. Gastroenterology reports no a cute findings on esophagogastroduodenoscopy. We will send stat hemoglobin and hematocrit now. Keep the patient n.p.o. and ready for prepping for colonoscopy tomorrow. We are holding antihypertensiv e medications and blood thinners in the setting of acute gastrointestinal bleed. 2. Anemia, secondary to acute blood loss. Suspect we are going to see a pronounced drop in the pat ient's hemoglobin on recheck. We will be prepared for blood transfusion. His hemodynamics are impr judd, however, after fluid resuscitation. 3. Acute hypotension, secondary to acute gastrointestinal bleed. The patient's blood pressures are slightly improved now, with systolics in the 100s after fluids. Again, check hemoglobin and hemato crit and anticipate the need for transfusion. 4. Sinus tachycardia, secondary to acute gastrointestinal bleed. This too has improved post fluid resuscitation. We will continue to monitor closely. 5. Diabetes. The patient's blood glucoses are in the 200s. Typically takes a higher dose of long- acting insulin at night, which we will reduce by 3/4 in anticipation of a day where he is unable to take adequate p.o. Can cover with sliding scale insulin as needed. 6. Severe peripheral vascular disease. I am holding the patient's aspirin, Effient, and cardiac me dications in the setting of acute bleed. We will treat with oral pain medications. 7. Hypertension. The patient is hypotensive at presentation. 8. Hyperlipidemia. We will hold the statin overnight. Can resume when normal intake is resumed. 9. Prophylaxis. Contraindicated in the setting of acute gastrointestinal bleed. 10. Diet. N.p.o. in anticipation of esophagogastroduodenoscopy. DISPOSITION: I expect greater than 2 midnights as the patient is presenting with unstable vital sig ns and acute gastrointestinal bleed, will require acute care in the stepdown unit overnight for stab ilization and diagnostics. I have discussed the case with the emergency room physician and Gastroen terology. The patient will be triaged to the stepdown unit for care. /[id number]/MODL
[2016-09-28 00:08] LABS: HEMATOCRIT 24.4 % (40.0-51.0); HEMOGLOBIN 7.9 g/dL (13.7-17.5)
[2016-09-28 04:34] LABS: % IMMATURE GRANULYOCYTES 0.5 % (0.0-1.1); ABSOLUTE IMMATURE GRANULOCYTES 0.04 10^3/uL (0.00-0.10); ADD DIFF? NO; ADD MORPH? NO; ADD SCAN? NO; ATYPICAL LYMPHOCYTE FLAG 10 (0-99); FRAGMENT RBC FLAG 0 (0-99); HEMOGLOBIN 9.8 g/dL (13.7-17.5); LEFT SHIFT FLG 0 (0-99); LIPEMIA HEMOLYSIS FLAG 80 (0-99); MEAN CELL HEMOGLOBIN 29.7 pg (27.9-34.1); MEAN CELL HEMOGLOBIN CONCENTR. 32.7 g/dL (32.4-36.7); MEAN CELL VOLUME 90.9 fL (81.5-99.8); MEAN PLATELET VOLUME 12.1 fL (8.7-11.7); PLATELET CLUMPS FLAG 0 (0-99); PLATELET COUNT 121 10^3/uL (150-400); RED CELL DISTRIBUTION WIDTH 14.8 % (11.5-15.2)
[2016-09-28 04:43] LABS: ANION GAP 11 mEq/L (8-16); CALCIUM 8.5 mg/dL (8.5-10.4); CARBON DIOXIDE 22 mEq/l (22-31); CHLORIDE 104 mEq/L (97-110); CREATININE 1.5 mg/dL (0.7-1.3); GLOMERULAR FILTRATION RATE 48; GLUCOSE 136 mg/dL (70-100); POTASSIUM 4.7 mEq/L (3.5-5.2); SODIUM 137 mEq/L (134-144)
--- NOTE | 2016-09-28 05:10 | GPN ---
[f rep st] PROCEDURE NOTE DATE OF PROCEDURE: 09/27/2016 PROCEDURE: Esophagogastrododenoscopy with biopsy. INDICATIONS: The patient is a 60-year-old male with a history of colon cancer, status post resection, NSAID use who presents with complaints of bright red blood in his ostomy bag. He was tachycardic with a low blood pressure on arrival to the ER. He presents for further evaluation. CONSENT: Risks, benefits, and alternatives of the procedure were discussed in great detail with the patient. Risks of infection, bleeding, perforation, sedation were discussed. All questions answered. Informed consent obtained. MEDICATIONS: Propofol. Please see Anesthesiology record for details. ESTIMATED BLOOD LOSS: Insignificant. ESOPHAGOGASTRODUODENOSCOPY EXAMINATION: The Olympus upper endoscope was introduced into the mouth and advanced to the esophagus. The proximal, mid, and distal esophagus were normal in appearance. The stomach was entered and closely examined, including retroflexed views of the angularis, cardia, and fundus. A hiatal hernia was visualized. The mucosa of the whole examined stomach was erythematous in a patchy distribution. Biopsies were taken. The duodenal bulb was normal in appearance. In the 2nd portion of the duodenum , multiple shallow ulcerations were seen which may represent biliary stress ulcers. Biopsies were taken. IMPRESSION: 1. Gastritis, status post biopsy. 2. Duodenal stress ulcers, status post biopsy (not the cause of bleeding) 3. No source of bleeding noted. RECOMMENDATIONS: 1. Will consider colonoscopy tomorrow. 2. Ultrasound of right upper quadrant due to elevated alkaline phosphatase. /[id number]/MODL MTDD
[2016-09-28] MEDS: PREGABALIN 100 MG CAP PO SCH ×2 (08:38→16:10)
[2016-09-28] MEDS: INSULIN LISPRO 100 UNIT/ML SC SCH ×2 (08:45→12:05)
[2016-09-28] MEDS ORDERED: PANTOPRAZOLE SODIUM 40 MG in NS 100 ML IV SCH (09:00)
[2016-09-28 10:32] LABS: HEMATOCRIT 25.6 % (40.0-51.0); HEMOGLOBIN 8.5 g/dL (13.7-17.5)
[2016-09-28] MEDS ORDERED: PROPOFOL 200 MG/20 ML VIAL ONE ×2 (10:47)
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
[2016-09-28] MEDS ORDERED: NALOXONE HCL 0.4 MG/ML INJ IVP PRN (11:01)
[2016-09-28] MEDS ORDERED: fentaNYL 100 MCG/2 ML INJ IVP PRN (11:01)
--- NOTE | 2016-09-28 11:35 | SOAPPROG ---
SOAP Progress Note Assessment/Plan: Assessment: Plan: 09/27/16 22:40 GI note See dictated consult and procedure note. No cause of bleeding noted on EGD. No blood visualized. Will proceed with colonoscopy in am. R/b/a discussed 09/28/16 11:32 GI note S/p colonoscopy. + polyp in transverse colon. No site of bleeding noted. No blood noted. EBL: Minimal Meds: Propofol Recs: 1. Advance diet 2. Continue Meds. 3. Capsule endoscopy as outpatient. 4. If any signs of bleeding, recommend tagged rbc/IR. 5. GI will sign off. Please call if needed. Thank you for the consultation Objective: Vital Signs Temp Pulse Resp BP Pulse Ox 36.6 C 75 11 L 93/52 L 99 09/28/16 10:38 09/28/16 10:48 09/28/16 10:48 09/28/16 10:48 09/28/16 10:48 Laboratory Results 09/28/16 10:28 09/28/16 04:20 09/27/16 09/28/16 09/29/16 05:59 05:59 05:59 Intake Total 2300 Output Total 500 Balance 1800 PT 13.5 SEC (12.0-15.0) 09/27/16 14:40 INR 1.04 (0.83-1.16) 09/27/16 14:40 ICD10 Worksheet Patient Problems: Problems Problem Status Onset Peripheral vascular disease Acute Hypotension Acute GI bleed Acute
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
--- NOTE | 2016-09-28 12:06 | GPN ---
[f rep st] PROCEDURE NOTE DATE OF PROCEDURE: 09/28/2016 PROCEDURE: Colonoscopy through ostomy with snare polypectomy. INDICATIONS: Mr. Rojo is a 60-year-old male with a history of colon cancer with ostomy who presents with complaints of bright red blood seen in his ostomy bag. He had an upper endoscopy performed which was unrevealing for a cause. He presents for further evaluation. CONSENT: Risks, benefits, and alternatives of the procedure were discussed in great detail with the patient. Risk of infection, bleeding, perforation, and sedation were discussed. All questions were answered. Informed consent was obtained. COLONOSCOPIC EVALUATION: The adult Olympus colonoscope was attempted to be placed through the ostomy opening, but ostomy opening was fairly tight. Due to this, an upper endoscope was then utilized. The upper endoscope was then introduced into his distal colon and advanced to the cecum, where the ileocecal valve and appendiceal orifice were seen. Most of the length of the EGD scope was advanced, and it was not possible to intubate the terminal ileum The colonic mucosa was carefully examined on both insertion and withdrawal of the scope. No mass lesion or bleeding site was noted. A polyp was seen of approximately 5 mm in the transverse colon and was removed by cold snare polypectomy. It was not retrieved. This was resected but not retrieved. IMPRESSION: 1. No obvious site of bleeding noted. 2. Transverse colon polyp, status post excision, but not retrieved. RECOMMENDATIONS: 1. Follow up on biopsy results. 2. Would recommend capsule endoscopy as an outpatient. 3. Repeat colonoscopy in 3 years. 4. OK to restart diet. 5. If continued bleeding during hospitalization, recommend tagged rbc scan versus IR evaluation? /[id number]/MODL MTDD
[2016-09-28] MEDS: OXYCODONE/APAP 5/325 TAB PO PRN (14:08)
[2016-09-28 15:13] LABS: HEMATOCRIT 28.4 % (40.0-51.0); HEMOGLOBIN 9.6 g/dL (13.7-17.5)
--- NOTE | 2016-09-28 16:07 | GDS ---
[f rep st] DISCHARGE SUMMARY DISCHARGE DIAGNOSES: 1. Gastrointestinal bleeding, possibly related to gastric ulcers. 2. Anemia, secondary to acute blood loss. 3. History of severe peripheral vascular disease, status post femoral-popliteal bypass and recent s tenting. 4. Type 2 diabetes. 5. Hyperlipidemia. 6. Hypertension. 7. History of colon cancer, status post colostomy. HISTORY: This is a 60-year-old male who presented with bloody output from his ostomy bag. HOSPITAL COURSE: Patient was admitted. He was transfused 1 unit of packed red blood cells. His bl eeding seemed to stop. He had an EGD which showed duodenal stress ulcers, although this was thought not to be the cause of bleeding. He then underwent colonoscopy the following day without any sourc e of bleeding. His hemoglobin has remained stable, and he will be discharged home. He will be star ignacio on a PPI. FOLLOWUP INSTRUCTIONS: He is instructed to stop his Effient and aspirin for the next 3 days. Jarred muller of the stenting, I think that he does need his Effient. He will follow up with Gastroenterology for his capsule endoscopy. TIME SPENT: Greater than 30 minutes was spent on discharge. /[id number]/MODL
[2016-09-28 16:10] VITALS: BP 110/69; PULSE 97; RESP 12; TEMP 98.4; O2SAT 93
[2016-09-28] MEDS ORDERED: INSULIN DETEMIR 10 UNIT SQ SCH (21:00)
== END 2016-09-28 16:44 | disposition home or self-care (01) | DRG 378 ==
LOC: F2N 21:56 → F3E 09-28 14:41
PROVIDERS: ADMIT Hospitalist; ATTEND Internal Medicine
PROC: 0DB98ZX Excision of Duodenum, Via Natural or Artificial Opening Endoscopic, Diagnostic (ICD-10-PCS; principal; 2016-09-27 19:30)
PROC: 0DBL8ZZ Excision of Transverse Colon, Via Natural or Artificial Opening Endoscopic (ICD-10-PCS; principal; 2016-09-27 19:30)
PROC: 0DB68ZX Excision of Stomach, Via Natural or Artificial Opening Endoscopic, Diagnostic (ICD-10-PCS; principal; 2016-09-27 19:30)
PROC: 30233N1 Transfusion of Nonautologous Red Blood Cells into Peripheral Vein, Percutaneous Approach (ICD-10-PCS; 2016-09-28)
DX: K25.4 Chronic or unspecified gastric ulcer with hemorrhage (principal); D62 Acute posthemorrhagic anemia; I73.9 Peripheral vascular disease, unspecified; G62.9 Polyneuropathy, unspecified; B19.20 Unspecified viral hepatitis C without hepatic coma; G47.33 Obstructive sleep apnea (adult) (pediatric); I10 Essential (primary) hypertension; E78.5 Hyperlipidemia, unspecified; K44.9 Diaphragmatic hernia without obstruction or gangrene; E11.9 Type 2 diabetes mellitus without complications; S06.9X9S Unspecified intracranial injury with loss of consciousness of unspecified duration, sequela; R41.3 Other amnesia; W34.00XS Accidental discharge from unspecified firearms or gun, sequela; Z85.038 Personal history of other malignant neoplasm of large intestine; Z93.3 Colostomy status
CPT/HCPCS: 96374; J1364; J1815; J2250; J2405; J2704; P9016; Q9967

== ENCOUNTER 2016-10-06 15:10 | Inpatient (IN) | payer OTHER, MEDICARE ==
[2016-10-06] MEDS ORDERED: NS 1,000 ML IV ONE ×2 (16:09→17:20)
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
[2016-10-06 17:01] LABS: % IMMATURE GRANULYOCYTES 0.7 % (0.0-1.1); ABSOLUTE IMMATURE GRANULOCYTES 0.03 10^3/uL (0.00-0.10); ABSOLUTE NRBC COUNT 0.02 10^3/uL (0-0.01); ADD DIFF? NO; ADD MORPH? YES; ADD SCAN? NO; ATYPICAL LYMPHOCYTE FLAG 0 (0-99); FRAGMENT RBC FLAG 0 (0-99); LEFT SHIFT FLG 0 (0-99); LIPEMIA HEMOLYSIS FLAG 80 (0-99); MEAN CELL HEMOGLOBIN 30.6 pg (27.9-34.1); MEAN CELL HEMOGLOBIN CONCENTR. 31.2 g/dL (32.4-36.7); MEAN CELL VOLUME 98.3 fL (81.5-99.8); MEAN PLATELET VOLUME 12.3 fL (8.7-11.7); NRBC-AUTO% 0.5 % (0.0-0.2); PLATELET CLUMPS FLAG 0 (0-99); PLATELET COUNT 117 10^3/uL (150-400); RED BLOOD CELL COUNT 1.73 10^6/uL (4.40-6.38); RED CELL DISTRIBUTION WIDTH 17.2 % (11.5-15.2)
[2016-10-06 17:04] LABS: INR 1.1 (0.83-1.16); PROTIME(PATIENT) 14.1 SEC (12.0-15.0)
[2016-10-06 17:05] LABS: APTT 23.5 SEC (23.0-38.0)
[2016-10-06 17:13] LABS: HEMOGLOBIN 5.3 g/dL (13.7-17.5)
[2016-10-06 17:15] LABS: ANION GAP 14 mEq/L (8-16); CARBON DIOXIDE 20 mEq/l (22-31); CHLORIDE 106 mEq/L (97-110); CREATININE 1.7 mg/dL (0.7-1.3); GLOMERULAR FILTRATION RATE 41; GLUCOSE 238 mg/dL (70-100); POTASSIUM 5.7 mEq/L (3.5-5.2); SODIUM 140 mEq/L (134-144)
[2016-10-06] MEDS ORDERED: CALCIUM GLUCONATE 50 ML IV ONE (17:20)
[2016-10-06] MEDS ORDERED: D50W 25 GM/50 ML SYR IVP PRN (17:24)
[2016-10-06] MEDS ORDERED: TEMAZEPAM 15 MG CAP PO PRN (17:31)
[2016-10-06] MEDS ORDERED: ONDANSETRON 4 MG/2 ML VIAL IVP PRN (17:31)
[2016-10-06] MEDS ORDERED: ONDANSETRON DISINTEGRATING 4 MG TAB PO PRN (17:31)
[2016-10-06 17:50] LABS: PLATELET ESTIMATE DECREASED (ADEQ)
[2016-10-06 17:51] LABS: POLYCHROMASIA 2+; STOMATOCYTES 1+
[2016-10-06] MEDS ORDERED: FERROUS SULFATE 325 MG TAB PO SCH (18:00)
--- NOTE | 2016-10-06 18:02 | CPEKG ---
Heart Rate: 95 RR Interval: 632 P-R Interval: 172 QRSD Interval: 82 QT Interval: 352 QTC Interval: 443 P Hendricks: 8 QRS Hendricks: 40 T Wave Hendricks: 32 EKG Severity - NORMAL ECG - EKG Impression: SINUS RHYTHM Electronically Signed By: Candace Madison 06-Oct-2016 23:15:51
[2016-10-06] MEDS ORDERED: ALTEPLASE 2 MG VIAL IVP PRN (18:05)
--- NOTE | 2016-10-06 19:47 | GHP ---
[f rep st] HISTORY AND PHYSICAL DATE OF ADMISSION: 10/06/2016 CHIEF COMPLAINT: Sent in by his primary physician. HISTORY OF PRESENT ILLNESS: This is a 61-year-old man, who was recently admitted with a GI bleed of unclear etiology. Presents with ongoing bleeding. He has a history of colon cancer and has a perm anent colostomy in place. He was admitted here from September 27 to September 28 with a GI bleed. He had an upper endoscopy, which showed some ulcers though did not appear to be the source of his blee ding. He had a colonoscopy through his ostomy, which also revealed no source. Plan was to get an o utpatient tagged red blood cell scan tomorrow. He presented to see his primary care physician today , was noted to have a hemoglobin of 5.4, was thus sent into the emergency department. He tells me marly brewer has had ongoing bright red blood in his ostomy. He has some dizziness and has just been feeling p oorly since he was discharged. He has no chest pain or shortness of breath. PAST MEDICAL/SURGICAL HISTORY: 1. Diabetes mellitus. 2. Colon cancer, status post ostomy. 3. Peripheral vascular disease, had been taken off aspirin and Eliquis on his last hospitalization, has a fem-pop bypass as well as angioplasty of a stent that was done 4 months ago. His last stent was actually placed years ago, however. 4. Neuropathy. 5. Hyperlipidemia. 6. Hypertension. MEDICATIONS: Please see medication reconciliation. ALLERGIES: He has allergies to morphine, Plavix, Levaquin, penicillins, bisulfate. FAMILY HISTORY: This was reviewed and noncontributory. SOCIAL HISTORY: He is accompanied by his . He quit smoking 7 years ago. He does not drink alc ohol. REVIEW OF SYSTEMS: A 10-point Review of Systems is conducted and is negative except per HPI. PHYSICAL EXAM: VITAL SIGNS: Blood pressure 107/63, heart rate 99, respiration rate 16, saturating 97% on room air. Temperature is 36.8. GENERAL: The patient is a pleasant man, who appears comfort able, mildly fatigued. HEENT: Normocephalic, atraumatic. CARDIOVASCULAR: Regular rate and rhythm. No murmurs, rubs, or gallops. PULMONARY: Lungs clear to auscultation bilaterally. ABDOMEN: Sof t, nontender, nondistended. He has a colostomy in place. SKIN: No rash. : No Gale. NEUROLOG IC: Alert and oriented x3. He is moving all extremities. PSYCHIATRIC: Normal mood and affect. LABS: Hemoglobin 5.3, platelets are 117. INR is 1.1. Potassium 5.7, creatinine 1.7. DATA: 1. I discussed this with Dr. Lerma and Dr. Martinez. We will get a tagged red blood cell scan tonigh t. 2. I personally viewed and interpreted his EKG. This shows sinus rhythm. There are no peaked T-wa ves. IMPRESSION AND PLAN: This is a 61-year-old male with ongoing gastrointestinal bleed of unclear etio logy. 1. Gastrointestinal bleed: Status post upper and lower scopes, which were negative. Currently, he modynamically stable. He does have a very low hemoglobin. I discussed this with Dr. Martinez. We will plan to get a tagged red blood cell scan tonight. Doubtful that any action will need to be taken o n this; however, it will be helpful for diagnostics. He will be transfused 2 units of packed red bl ood cells after his tagged red blood cell scan. Otherwise, we will trend his hemoglobin and follow his clinical course. 2. Hyperkalemia with elevated creatinine: I think that he is probably prerenal given his ongoing b lood loss. I will give him some normal saline as well as some calcium and recheck his potassium aft er 2 L of normal saline. If this is still elevated, will need to give him Kayexalate and be more ag gressive. 3. Chronic kidney disease: He has a mild acute component on top of this. His baseline creatinine about 1.4 to 1.5. 4. Peripheral vascular disease: He has been off Effient and aspirin. He was placed on these about [address] Galeana did an angioplasty of his femoral stent. He has not had an actual st ent or graft placed for about 4 years, however. We will continue to hold his aspirin and Effient. 5. Diabetes mellitus type 2: Will give him home doses of his insulin, check his sugars, and give h im sliding scale adjustments. 6. Hypertension: Hold his antihypertensives. 7. Code status is full code. 8. Venous thromboembolism risk is [id number], but he has contraindication to anticoagulation. We will give him sequential compression devices. /[id number]/MODL
[2016-10-06] MEDS ORDERED: Insulin Detemir [Levemir] 40 UNIT SQ SCH (21:00)
[2016-10-06] MEDS: OXYCODONE/APAP 5/325 TAB PO PRN (21:05)
[2016-10-06] MEDS: DULoxetine 20 MG CAP PO SCH (21:06)
[2016-10-06] MEDS: PREGABALIN 100 MG CAP PO SCH (21:06)
[2016-10-06 22:05] LABS: GLUCOSE 323 mg/dL (70-100)
[2016-10-06] MEDS: INSULIN LISPRO 100 UNIT/ML SC SCH (22:17)
[2016-10-07] MEDS: ACETAMINOPHEN 325 MG TAB PO PRN ×2 (00:32→21:26)
[2016-10-07 01:36] LABS: ANION GAP 6 mEq/L (8-16); CARBON DIOXIDE 16 mEq/l (22-31); CHLORIDE 123 mEq/L (97-110); GLOMERULAR FILTRATION RATE > 60; GLUCOSE 146 mg/dL (70-100); POTASSIUM 3.5 mEq/L (3.5-5.2); SODIUM 145 mEq/L (134-144)
[2016-10-07 01:38] LABS: % IMMATURE GRANULYOCYTES 0.5 % (0.0-1.1); ABSOLUTE IMMATURE GRANULOCYTES 0.01 10^3/uL (0.00-0.10); ADD DIFF? NO; ADD MORPH? YES; ADD SCAN? NO; ATYPICAL LYMPHOCYTE FLAG 10 (0-99); FRAGMENT RBC FLAG 0 (0-99); HEMATOCRIT 11.8 % (40.0-51.0); LEFT SHIFT FLG 0 (0-99); LIPEMIA HEMOLYSIS FLAG 70 (0-99); MEAN CELL HEMOGLOBIN 29.9 pg (27.9-34.1); MEAN CELL HEMOGLOBIN CONCENTR. 29.7 g/dL (32.4-36.7); MEAN CELL VOLUME 100.9 fL (81.5-99.8); MEAN PLATELET VOLUME 11.5 fL (8.7-11.7); PLATELET CLUMPS FLAG 10 (0-99); PLATELET COUNT 69 10^3/uL (150-400); RED BLOOD CELL COUNT 1.17 10^6/uL (4.40-6.38); RED CELL DISTRIBUTION WIDTH 16.7 % (11.5-15.2)
[2016-10-07 01:41] LABS: HEMOGLOBIN 3.5 g/dL (13.7-17.5)
[2016-10-07 02:11] LABS: MICROCYTES 1+
[2016-10-07 02:12] LABS: HYPOCHROMIA 1+; PLATELET ESTIMATE DECREASED (ADEQ); POLYCHROMASIA 2+; ROULEAUX PRESENT
[2016-10-07] MEDS: NS 1,000 ML IV SCH ×2 (02:37→14:32)
--- NOTE | 2016-10-07 02:37 | HOSPPROG ---
Hospitalist Progress Note Assessment/Plan: CAlled bedside for transfusion reaction and critical labs 61 y.o male with complicated recent history of GIB admitted with recurrent bleeding and hgb of 5.3 - transfusion started after admission and patient developed tightening of his throat and fever - sx resolved within minutes after receiving tylenol alone. Transfusion reaction labs returned with hgb 3.5 122/52 (103) 95% on 5L afebrile after tylenol A&Ox3 tachycardic and regular CTA bilaterally +BS soft and nontender pale skin/conjunctiva no edema # Acute transfusion reaction - mild - - transfusion stopped immediately and labs sent - tylenol given - recommendations by blood bank are re-infusion at slower rate - benadryl x1 given and pt transferred to ICU # severe anemia - hgb 3.5 - suspect some drop 2/2 dilution from admission- VS with mild tachycardia - BP stable -as above transferred to ICU for re-attempt of transfusion # GIB - pt has not had ongoing blood loss overnight - monitoring closely - received 3L NS - now continuous NS I sepnt > 40minutes providing critical care to this patient - we will monitor closely with attempted re-transfusion Objective: Vital Signs Temp Pulse Resp BP Pulse Ox 36.6 C 103 H 19 122/52 H 93 10/06/16 23:35 10/06/16 23:35 10/06/16 23:35 10/06/16 23:35 10/06/16 23:35 Laboratory Results 10/07/16 01:15 10/07/16 01:15 10/05/16 10/06/16 10/07/16 05:59 05:59 05:59 Intake Total 450 Balance 450 PT 14.1 SEC (12.0-15.0) 10/06/16 16:40 INR 1.10 (0.83-1.16) 10/06/16 16:40 ICD10 Worksheet Patient Problems: Problems Problem Status Onset Anemia Acute GI bleed Acute Hypotension Acute Peripheral vascular disease Acute
--- NOTE | 2016-10-07 07:44 | SOAPPROG ---
JUSTIN Progress Note Assessment/Plan: Assessment/Plan: Chart reviewed, pt. not seen, formal note to follow. Tagged rbc scan negative. Pt. quite anemic, and with all his cell lines down, and a high MCV. A G.I. source of blood loss is still possible, but also worry about a myelodysplastic process. - recommend hematology consult - further management to follow Thanks! 10/07/16 07:41 Objective: Vital Signs Temp Pulse Resp BP Pulse Ox 36.7 C 93 12 141/52 H 97 10/07/16 04:03 10/07/16 04:03 10/07/16 04:03 10/07/16 04:03 10/07/16 04:03 Laboratory Results 10/07/16 01:15 10/07/16 01:15 10/06/16 10/07/16 10/08/16 05:59 05:59 05:59 Intake Total 1061 427 Output Total 575 200 Balance 486 227 PT 14.1 SEC (12.0-15.0) 10/06/16 16:40 INR 1.10 (0.83-1.16) 10/06/16 16:40 ICD10 Worksheet Patient Problems: Problems Problem Status Onset Anemia Acute GI bleed Acute Hypotension Acute Peripheral vascular disease Acute
[2016-10-07 07:46] LABS: HEMATOCRIT 24.3 % (40.0-51.0); HEMOGLOBIN 7.9 g/dL (13.7-17.5)
[2016-10-07] MEDS ORDERED: PROTOCOL POTASSIUM 1 DOSE MISC PRN (08:51)
[2016-10-07] MEDS ORDERED: PROTOCOL MAGNESIUM 1 DOSE IV PRN (08:51)
[2016-10-07] MEDS ORDERED: PROTOCOL CALCIUM 1 DOSE IV PRN (08:51)
--- NOTE | 2016-10-07 08:58 | HOSPPROG ---
Hospitalist Progress Note Assessment/Plan: GI bleed - Hgb 3.5 overnight and pt had transfusion reaction. Hgb now 7.9 and hemodynamically stable. Recent EGD and c-scope thru ostomy did not reveal source of bleeding, some gastritis and gastric ulcers noted. Tagged rbc scan overnight unrevealing. ASA and Eliquis held. -cont serial h&h, transfuse to keep hgb >8 given PVD -NPO per GI for repeat EGD / c-scope this am- update: scopes clear again, sounds like source is bleeding from ostomy -ostomy care -discussed with Dr. Martinez, GI Acute blood loss anemia - had transfusion reaction overnight, hgb stable this am -pre-treat if requires ongoing transfusion Thrombocytopenia - in setting of GI bleeding -will transfuse plts if bleeding persists ROMÁN / CKD - Cr improved with volume resuscitation Hyperkalemia - improved with insulin, K down to 3.5 -electrolyte protocol Hyperchloremia - change to 1/2 NS PVD - h/o bypass and prior coronary stents. ASA and Eliquis held as above. DM - bg's 100's this am. Pt on clears only. -reduce evening glargine until taking better po -cont SSI Full code DVT PPLX - pharm c/i with bleeding, SCD's Dispo - cont inpt, transfer to med surg Subjective: Pt feels tired. Denies ongoing bleeding. No pain. No fevers. Objective: Vital Signs Temp Pulse Resp BP Pulse Ox 36.7 C 95 13 136/61 H 99 10/07/16 08:00 10/07/16 08:00 10/07/16 08:00 10/07/16 08:00 10/07/16 08:00 Laboratory Results 10/07/16 07:40 10/07/16 01:15 10/06/16 10/07/16 10/08/16 05:59 05:59 05:59 Intake Total 1061 427 Output Total 575 375 Balance 486 52 PT 14.1 SEC (12.0-15.0) 10/06/16 16:40 INR 1.10 (0.83-1.16) 10/06/16 16:40 - Physical Exam Constitutional: no apparent distress Eyes: PERRL Ears, Nose, Mouth, Throat: moist mucous membranes Cardiovascular: regular rate and rhythym Respiratory: no respiratory distress Gastrointestinal: normoactive bowel sounds, soft, non-tender abdomen, other ( ostomy functioning, brown stool in bag) Skin: warm Musculoskeletal: full muscle strength Neurologic: AAOx3 Psychiatric: interacting appropriately ICD10 Worksheet Patient Problems: Problems Problem Status Onset Anemia Acute GI bleed Acute Hypotension Acute Peripheral vascular disease Acute
[2016-10-07] MEDS ORDERED: 1/2 NS 1,000 ML IV SCH (09:00)
[2016-10-07] MEDS ORDERED: NON-FORMULARY NEW DRUG (Insulin Detemir [Levemir] 30 UNIT) SQ SCH (09:06)
[2016-10-07] MEDS: Insulin Detemir [Levemir] 22 UNIT SQ SCH ×2 (09:34→09:42)
[2016-10-07] MEDS ORDERED: methylPREDNISolone SOD SUCC 125 MG/2 ML VIAL IVP ONE (09:39)
[2016-10-07] MEDS: INSULIN LISPRO 100 UNIT/ML SC SCH ×3 (09:45→19:35)
[2016-10-07] MEDS ORDERED: fentaNYL 100 MCG/2 ML INJ ONE (09:47)
[2016-10-07] MEDS ORDERED: MIDAZOLAM 2 MG/2 ML VIAL ONE (09:47)
--- NOTE | 2016-10-07 10:05 | PDPROPOC ---
Sedation Plan of Care ASA Classification: ASA 2 Mallampati Score: Class 1
[2016-10-07] MEDS ORDERED: SILVER NITRATE APPLICATOR 1 APPL TP ONE (10:42)
--- NOTE | 2016-10-07 10:43 | GCON ---
[f rep st] CONSULTATION GASTROINTESTINAL INPATIENT CONSULTATION DATE OF CONSULTATION: 10/07/2016 I was kindly requested to see Eric by Dr. Chandrakant Lofton in consultation for a chief complaint of gastrointestinal bleeding. He is a 61-year-old white male who presented to the emergency department with bright red blood via his ostomy bag. Today, he is now having just brown output. He recently was in the hospital in mid September for the same. Then, he underwent upper endoscopy and colonoscopy via his ostomy with my partner, Dr. Sheikh. His upper endoscopy showed some superficial duodenal ulcers and some mild gastritis , but no active bleeding, and the above was not felt to be the source. Biopsies were negative for H pylori. Duodenal biopsies were negative. Colonoscopy through the ostomy revealed a tight ostomy initially, and an upper endoscope was used. The cecum was reached. A 5 mm transverse colon polyp was seen, removed. No source again was found. The plan was to do an outpatient small-bowel pill camera endoscopy. Upon discharge, the patient's hematocrit was 28.4%. Now, on presentation, his hematocrit is 17%. He has received 2 units of blood, and his hematocrit is presently 24.3%. He does use aspirin at home. He has had some dizziness, but otherwise denies chest pain, shortness of breath, etc. PAST MEDICAL HISTORY: 1. Diabetes. 2. Past history of colon cancer, status post permanent colostomy. 3. Peripheral vascular disease. 4. Neuropathy. 5. Elevated lipids. 6. Hypertension. 7. Otherwise, noncontributory. MEDICATIONS: Outpatient medications include Metformin, lisinopril, iron twice a day, B12, Nexium 40 mg daily. He denies taking any further Eliquis. Inpatient medications include Lyrica, pantoprazole, insulin, Cymbalta, Tricor, iron twice a day, Lipitor. ALLERGIES: Include morphine, Plavix, Levaquin, penicillin and bisulfate. SOCIAL HISTORY: He is . He does not drink excess alcohol. FAMILY HISTORY: Negative for similar bleeding. REVIEW OF SYSTEMS: Positive pertinent review of systems as per my HPI. Otherwise, a complete review of systems is negative. PHYSICAL EXAMINATION: CONSTITUTIONAL: Well-developed, nontoxic. SKIN: Warm, dry. EYES: Pupils equal, round and reactive to light and accommodation. EARS , NOSE, MOUTH AND THROAT: Oropharynx without masses, moist mucosa. CARDIOVASCULAR: Normal S2, normal PMI. RESPIRATORY: Lungs clear to auscultation and percussion anteriorly. GASTROINTESTINAL: Abdomen is profuse, nontender. He has a colostomy in place. NEUROLOGIC: Grossly nonfocal, cranial nerves grossly intact. PSYCHIATRIC: Orientation, insight appropriate. MUSCULOSKELETAL: Strength grossly normal throughout, with normal station. LABORATORY DATA: Laboratories include the above. Of note, he did receive 2 units of blood, with apparently a transfusion reaction. At 1 A.M. he had a CBC which showed a white count of 1.94, and platelet count of 69,000. Normal coags. Initial potassium 5.7, now 3.5. Sodium 145. Initial BUN and creatinine were 44 and 1.7. Glucose 238. Initial platelet count of 117,000. Tagged red blood cell scan yesterday negative. ASSESSMENT: 1. Repeat bleeding via his ostomy bag. With his recent negative upper endoscopy and colonoscopy via his ostomy, a small bowel source still remains quite possible. An ulcer on his colostomy, or a lesion in his colon not appreciated prior, is possible, but less likely. It is possible that his prior superficial duodenal ulcers are now more deep and responsible. A Dieulafoy lesion in either the upper GI tract or colon is also possible. 2. He did have one inpatient CBC with a very low white count and platelet count. Suspect this may have been just part of his transfusion reaction, and not significant. PLAN: 1. Will repeat his upper endoscopy, using a pediatric adult colonoscope, going as far into the small bowel as possible. Will also repeat a colonoscopy via his ostomy. With his diabetes, peripheral vascular disease, neuropathy, elevated lipids, hypertension, sleep apnea, etc., he certainly is at increased risk for these procedures. However, suspected benefits outweigh the risks, and suspect he will do well. 2. Further management pending the above. 3. We will recheck a CBC, to make sure his white count and platelet count have normalized. Thank you for allowing me to help in the care of this patient. /[id number]/MODL MTDD
--- NOTE | 2016-10-07 10:57 | POSTOPPROG ---
Post Op Note Date of Operation: 10/07/16 Surgeon: Ebenezer Martinez Anesthesia: IV Sedation Pre-op Diagnosis: BRB per ostomy Post-op Diagnosis: Suspect bleeding from ostomy itself, with skin breakdown as well Procedure: egd negative, colon poor prep Findings: As above. Wd nurse. Outpt small bowel camera. Liberalize care. Inf/Abcess present in the surg proc area at time of surgery?: No Complications: None
[2016-10-07] MEDS ORDERED: D10W 250 ML PRN HYPOGLYCEMIA IV (11:30)
--- NOTE | 2016-10-07 11:33 | GPN ---
[f rep st] PROCEDURE NOTE DATE OF PROCEDURE: 10/07/2016 PROCEDURE: Upper endoscopy with small bowel enteroscopy, colonoscopy via ostomy. PREPROCEDURE DIAGNOSIS: Bright red blood per ostomy. Of note, the patient mentions that when he had his ostomy bag off at home, and pushed on his lower abdomen, he could see blood "spurt out." POSTPROCEDURE DIAGNOSES: 1. Upper endoscopy. Normal. No further superficial duodenal erosions seen. No gastritis seen. Full length of a pediatric adult upper endoscope used, to look at as much small bowel as possible. Normal. 2. Colonoscopy via his ostomy. a. Eroded, macerated skin around his ostomy. In addition, multiple small bleeding sites seen coming from his ostomy, approximately 4, with mild oozing. All treated with silver nitrate. b. Able to get the colonoscope only 10 cm into the colon via his ostomy, due to him being unprepped and copious brown stool present. Area examined was normal, except for diverticulosis. No bleeding. PREMEDICATION: Fentanyl 150 mcg IV, Versed 6 mg IV. COMPLICATIONS: None. TOTAL LENGTH OF PROCEDURE: From sedation to procedure's end was 42 minutes. FINDINGS: After informed consent was obtained, the patient was placed in the left lateral decubitus position. Video pediatric adult colonoscope was placed under direct visualization and advanced. Esophagus, stomach and duodenum were normal. Almost the full length of the pediatric colonoscope was used to traverse at least 80 cm into the small bowel. Upon slow withdrawal, small bowel mucosa was normal. The patient was then laid prone. His colostomy bag was removed. Blood could be seen mildly oozing externally from one pinpoint spot on his ostomy. With compression of his abdomen and ostomy, several other small bleeding sites could be seen. The skin around his ostomy was macerated and eroded. Using a silver nitrate stick, all the small bleeding sites were treated. The pediatric colonoscope was then placed in the ostomy and advanced, but 10 cm in, the colon was blocked with formed, brown stool (this was an unprepped procedure). No blood was seen whatsoever. Upon slow withdrawal, the inside of his ostomy showed good health. Several small diverticula were seen, nonbleeding. IMPRESSION: I suspect the bright red blood that he saw "shooting out" from his ostomy when compressing his lower abdomen represents these small bleeding sites on his ostomy itself. Now, no further bleeding. These areas were treated with silver nitrate, which should hopefully help. Better ostomy care should hopefully help as well. Other possibilities are much less likely. A diverticular bleed is possible, but less likely. A small bowel source is still possible, not reached by today' s enteroscopy, but also less likely. However, this most likely is still important to evaluate, considering the degree of his anemia on presentation. PLAN: 1. We will let him eat. 2. Buff cap IV. 3. Will discontinue serial hematocrits. 4. We will have a wound care nurse see him for better ostomy care. 5. He has a repeat CBC ordered. I suspect his white blood cell count and platelet count will be better. If not, he might benefit from hematology consultation. As per hospitalist service. 6. We will still pursue an outpatient small bowel PillCam endoscopy as a safety measure. I am going off service after today, so we will sign off. I will arrange the above. Upon discharge, would recommend iron replacement therapy. Otherwise, please call if we can be of further help. Thanks! /[id number]/MODL MTDD
[2016-10-07 12:16] LABS: CALCIUM 5.7 mg/dL (8.5-10.4)
[2016-10-07 13:41] LABS: IONIZED CALCIUM 1.22 MMOL/L (1.12-1.30)
[2016-10-07 13:43] LABS: HEMATOCRIT 24.3 % (40.0-51.0); MEAN CELL HEMOGLOBIN 31.6 pg (27.9-34.1); MEAN CELL HEMOGLOBIN CONCENTR. 32.9 g/dL (32.4-36.7); RED BLOOD CELL COUNT 2.53 10^6/uL (4.40-6.38); RED CELL DISTRIBUTION WIDTH 15.6 % (11.5-15.2)
[2016-10-07] MEDS: PANTOPRAZOLE SODIUM 40 MG TAB PO SCH (13:48)
[2016-10-07] MEDS: ATORVASTATIN CALCIUM 40 MG TAB PO SCH (13:48)
[2016-10-07 13:53] LABS: MAGNESIUM 1.3 mg/dL (1.6-2.3); POTASSIUM 5.9 mEq/L (3.5-5.2)
[2016-10-07] MEDS ORDERED: MAGNESIUM SULF 2 GM/WATER 50 ML IV ONE (14:12)
[2016-10-07] MEDS: FENOFIBRATE 145 MG TAB PO SCH (14:30)
[2016-10-07] MEDS: PREGABALIN 100 MG CAP PO SCH ×3 (15:09→22:08)
[2016-10-07] MEDS ORDERED: SODIUM POLY SULF 15 GM/60 ML BOTTLE PO ONE (17:03)
[2016-10-07 17:47] LABS: POTASSIUM 5.2 mEq/L (3.5-5.2)
[2016-10-07] MEDS ORDERED: INSULIN DETEMIR 30 UNIT SQ SCH (21:00)
[2016-10-07] MEDS: DULoxetine 20 MG CAP PO SCH (21:26)
[2016-10-07 21:56] LABS: POTASSIUM 4.9 mEq/L (3.5-5.2)
[2016-10-08 05:01] LABS: IONIZED CALCIUM 1.22 MMOL/L (1.12-1.30)
[2016-10-08 05:06] LABS: % IMMATURE GRANULYOCYTES 0.3 % (0.0-1.1); ABSOLUTE IMMATURE GRANULOCYTES 0.02 10^3/uL (0.00-0.10); ADD DIFF? NO; ADD MORPH? NO; ADD SCAN? NO; ATYPICAL LYMPHOCYTE FLAG 0 (0-99); FRAGMENT RBC FLAG 0 (0-99); HEMATOCRIT 23.6 % (40.0-51.0); HEMOGLOBIN 7.5 g/dL (13.7-17.5); LEFT SHIFT FLG 0 (0-99); LIPEMIA HEMOLYSIS FLAG 80 (0-99); MEAN CELL HEMOGLOBIN 30.4 pg (27.9-34.1); MEAN CELL HEMOGLOBIN CONCENTR. 31.8 g/dL (32.4-36.7); MEAN CELL VOLUME 95.5 fL (81.5-99.8); MEAN PLATELET VOLUME 11.5 fL (8.7-11.7); PLATELET CLUMPS FLAG 0 (0-99); PLATELET COUNT 82 10^3/uL (150-400); RED BLOOD CELL COUNT 2.47 10^6/uL (4.40-6.38); RED CELL DISTRIBUTION WIDTH 15.4 % (11.5-15.2)
[2016-10-08 05:26] LABS: ANION GAP 6 mEq/L (8-16); CALCIUM 8.6 mg/dL (8.5-10.4); CARBON DIOXIDE 22 mEq/l (22-31); CHLORIDE 110 mEq/L (97-110); CREATININE 1.1 mg/dL (0.7-1.3); GLOMERULAR FILTRATION RATE > 60; GLUCOSE 146 mg/dL (70-100); MAGNESIUM 1.4 mg/dL (1.6-2.3); POTASSIUM 4.7 mEq/L (3.5-5.2); SODIUM 138 mEq/L (134-144)
[2016-10-08] MEDS: Insulin Detemir [Levemir] 22 UNIT SQ SCH (09:23)
[2016-10-08] MEDS: INSULIN LISPRO 100 UNIT/ML SC SCH ×2 (09:26→13:24)
[2016-10-08] MEDS: PREGABALIN 100 MG CAP PO SCH ×2 (09:48→15:42)
[2016-10-08] MEDS: ATORVASTATIN CALCIUM 40 MG TAB PO SCH (09:49)
[2016-10-08] MEDS: PANTOPRAZOLE SODIUM 40 MG TAB PO SCH (09:49)
[2016-10-08] MEDS: FENOFIBRATE 145 MG TAB PO SCH (09:49)
[2016-10-08] MEDS: OXYCODONE/APAP 5/325 TAB PO PRN (09:51)
[2016-10-08] MEDS ORDERED: MAGNESIUM SULF 2 GM/WATER 50 ML IV ONE (13:08)
[2016-10-08 15:45] LABS: HEMATOCRIT 24.1 % (40.0-51.0); HEMOGLOBIN 7.8 g/dL (13.7-17.5)
[2016-10-08 16:26] VITALS: BP 133/58; PULSE 95; RESP 14; TEMP 98.2; O2SAT 93
--- NOTE | 2016-10-08 18:32 | GDS ---
[f rep st] DISCHARGE SUMMARY DISCHARGE DIAGNOSES: 1. Gastrointestinal bleed. Source is suspected to be from his ostomy site. 2. Acute blood loss anemia, status post 2 units packed red blood cells with a hemoglobin of 7.8 on discharge. 3. Thrombocytopenia. This is chronic, though slightly worse than his baseline, in the setting of G I bleeding. He may warrant an outpatient Hematology evaluation. 4. Acute kidney injury, resolved. 5. Hyperkalemia, resolved. 6. Peripheral vascular disease with history of bypass and prior coronary stents. 7. Diabetes mellitus. CONSULTANTS: Dr. Ebenezer Martinez, Gastroenterology. PROCEDURES: 1. Upper endoscopy with small bowel enteroscopy and colonoscopy via his ostomy performed by Dr. Wil Martinez on October 07, 2016. Showed no evidence of duodenal erosions or gastritis, and a normal smal l bowel as visualized. Eroded macerated skin was noted around his ostomy with multiple bleeding sit es coming from the ostomy with mild oozing. These areas were treated with silver nitrate, and the b leeding stopped. The colonoscopy was only performed 10 cm proximal to his ostomy due to him being u nprepped, and copious brown stool was present. Diverticulosis was noted. 2. PICC line insertion October 06, 2016. HISTORY: For details, please see the dictated history and physical dated October 06, 2016. In brief , the patient is a 61-year-old male with history of diabetes, peripheral vascular disease, including previous bypass surgery, and coronary stents, as well as colon cancer, status post ostomy, who pres ents to the Emergency Department with recurrent bleeding in his ostomy bag. He was just discharged from the hospital a week prior to readmission. At that time he also had some GI bleeding in his ost michael bag. He had an upper endoscopy, as well as a colonoscopy, which revealed no source of active bl eeding. He had plan for outpatient pill endoscopy, though returned with recurrent bleeding. He is admitted to the hospital for further evaluation. HOSPITAL COURSE: The patient was admitted to the Intensive Care Unit, as he had a presenting hemogl obin of 5.3. His repeat hemoglobin was 3.5. However, I suspect this was dilutional. Per discussio n with RN, this was drawn from the line with normal saline running it. He did receive 2 units of pa cked red blood cells, and his repeat hemoglobin has been stable around 7.8 to 8. He has remained he modynamically stable. A repeat upper endoscopy and partial colonoscopy was performed with results a s above. It is suspected his GI bleeding was related to ongoing oozing from his ostomy site. As ab harmon, this was treated with chemical cautery with resolution of the bleeding. There has been no ongo ing evidence of active bleeding. He has had only brown stool in his ostomy bag, and his hemoglobin remained stable. It is recommended he still undergo pill endoscopy in the outpatient setting to [facility] for less likely causes of ongoing GI bleeding. He was discharged from the hospital September 28 instructions to hold his aspirin and Effient. Neither of these medications are on his med list o n this admission. Given the severity of his anemia on arrival, I recommend he continue to hold his aspirin and Effient for at least 1 week. He should follow up with primary care physician, and have a repeat hemoglobin/hematocrit checked in 3-5 days. It looks like his stents were placed in 2012, s o he likely does not need ongoing dual antiplatelet therapy, but can resume aspirin in 7-10 days if he has no further evidence of bleeding. We will ask that he follow up with primary care physician f or repeat labs to determine the timing of resuming his anti-platelet therapy. [facility] the [facility] arrange for the outpatient pill endoscopy. The patient will follow up with outpatient wound care clinic for ongoing ostomy care. DISPOSITION: The patient is discharged home in stable condition. FOLLOWUP: 1. Dr. Dinesh Patton primary care in 3-5 days for repeat H and H. 2. Dr. Ebenezer Martinez, Gastro[facility]ology of [facility], who will arrange for an outpatient pill endosco py. DISCHARGE MEDICATIONS: Please see Web and Rank for complete updated outpatient medication list. There are no new medications on discharge. He will continue his iron supplements twice daily. Changed me dications include a decrease in lisinopril to 20 mg daily. This was held during his hospitalization as he presented with acute kidney injury, which has normalized, so his blood pressures are 120s to 130 systolic. I suspect he may not need as high of a dose of lisinopril, though this could be up ti trated if his blood pressure is on the rise. I also recommended he hold his metformin for 3 more da ys. He can resume his aspirin in 7-10 days if he has no further GI bleeding. /[id number]/MODL
== END 2016-10-08 17:05 | disposition home or self-care (01) | DRG 357 ==
LOC: OBSVTOIN 17:34 → F2W 18:40 → F2N 10-07 02:17 → F3E 10-07 15:41
PROVIDERS: ADMIT Student in an Organized Health Care Education/Training Program; ATTEND Student in an Organized Health Care Education/Training Program
PROC: 02HV33Z Insertion of Infusion Device into Superior Vena Cava, Percutaneous Approach (ICD-10-PCS; 2016-10-06)
PROC: 30233N1 Transfusion of Nonautologous Red Blood Cells into Peripheral Vein, Percutaneous Approach (ICD-10-PCS; 2016-10-06)
PROC: 0W3F4ZZ Control Bleeding in Abdominal Wall, Percutaneous Endoscopic Approach (ICD-10-PCS; principal; 2016-10-07 09:56)
DX: K94.01 Colostomy hemorrhage (principal); K94.09 Other complications of colostomy; T80.89XA Other complications following infusion, transfusion and therapeutic injection, initial encounter; D62 Acute posthemorrhagic anemia; N17.9 Acute kidney failure, unspecified; E87.5 Hyperkalemia; E87.8 Other disorders of electrolyte and fluid balance, not elsewhere classified; D69.6 Thrombocytopenia, unspecified; E11.59 Type 2 diabetes mellitus with other circulatory complications; I73.9 Peripheral vascular disease, unspecified; E11.42 Type 2 diabetes mellitus with diabetic polyneuropathy; I25.10 Atherosclerotic heart disease of native coronary artery without angina pectoris; E78.5 Hyperlipidemia, unspecified; I10 Essential (primary) hypertension; G47.33 Obstructive sleep apnea (adult) (pediatric); Z87.891 Personal history of nicotine dependence; B19.20 Unspecified viral hepatitis C without hepatic coma; Z85.038 Personal history of other malignant neoplasm of large intestine; Z87.442 Personal history of urinary calculi; Z87.19 Personal history of other diseases of the digestive system
CPT/HCPCS: 82947-QW; A9560; C1751; J0610; J1200; J1642; J1815; J2250; J3010; P9016

== ENCOUNTER 2016-10-19 18:19 | Inpatient (IN) | payer OTHER, MEDICARE ==
--- NOTE | 2016-10-19 19:53 | EDPHY ---
H & P Time Seen by Provider: 10/19/16 19:21 HPI/ROS: CHIEF COMPLAINT: Bleeding from stoma HISTORY OF PRESENT ILLNESS: This 61-year-old man was discharged from our facility on October 08 with the gastrointestinal bleed from his ostomy site. He was transfused 2 units of packed red blood cells with a hemoglobin of 7.8 on discharge. He had upper endoscopy which showed no ulcer or gastritis and normal small bowel and a colonoscopy only 10 cm proximal to his ostomy. He had chemical cautery of the bleeding site near his ostomy. The patient presents with bleeding on Monday which was mild and then bleeding last night which was severe. Bleeding not associated with vomiting or nausea or pain. Moderate in nature. He does feel dizzy and lightheaded on standing and weak. REVIEW OF SYSTEMS: Eye: no change in vision ENT: no sore throat Cardiac: no chest pain or syncope Pulmonary: no cough or SOB Abdomen: HPI Musculoskeletal: no back pain Skin: no rash Neuro: no headache Constitutional: no fever : no urinary symptoms A comprehensive 10 point review of systems is otherwise negative aside from elements mentioned in the history of present illness. PAST MEDICAL HISTORY: History and physical dated 10/06/2016 personally reviewed includes diabetes, colon cancer with ostomy, peripheral vascular disease not currently on aspirin or Eliquis, vascular bypass, hyperlipidemia, hypertension. Social history: Former smoker, General Appearance: Alert and conversant, cooperative. Eyes: Pale conjunctiva. ENT, Mouth: Normal mucous membranes. Respiratory: Normal respiratory effort, breath sounds equal, lungs are clear to auscultation. Cardiovascular: Regular rate and rhythm. Gastrointestinal: Abdomen is soft and non tender. Ostomy examined with the bag removed and it is soft without any active bleeding visualized. Neurological: Alert and oriented x3. Normally conversant. Face symmetric, normal movement and sensation in all extremities. Skin: No bruising or petechiae. Musculoskeletal: No peripheral edema and no joint swelling. Psychiatric: Not agitated. Emergency Department course/MDM: Patient is very concerned about recurrent bleeding. Plan to check CBC and likely admission for addressing recurrent bleeding symptoms. Patient identifies with [facility] at [facility], will consult with them. 2100: Lab values reviewed with the patient and his , he is ambulatory back from the bathroom, packed red blood cells ordered. 2131: Repeat hemoglobin and hematocrit of 4.6 and 16.3, lab feels the initial values were not accurate. Still requires admission for transfusion and GI consult. 2 units packed red blood cells. Smoking Status: Former smoker Constitutional: Initial Vital Signs Temperature (C) 36.9 C 10/19/16 18:35 Heart Rate 94 10/19/16 18:35 Respiratory Rate 18 10/19/16 18:35 Blood Pressure 124/59 H 10/19/16 18:35 O2 Sat (%) 99 10/19/16 18:35 O2 Delivery Mode Room Air Allergies/Adverse Reactions: morphine Allergy (Severe, Verified 10/19/16 18:46) Anaphylaxis clopidogrel Allergy (Verified 10/19/16 18:46) Swelling/neck,face,throat levofloxacin Allergy (Verified 10/19/16 18:46) Unknown Penicillins Allergy (Verified 10/19/16 18:46) Swelling/neck,face,throat bisulfate Allergy (Uncoded 01/25/13 08:32) Home Medications: Medication Instructions Recorded metFORMIN HCL [Glucophage 1000 mg] 1,000 mg PO BIDMEAL 01/25/13 Insulin Lispro [Humalog] 20 - 26 unit SQ BIDMEAL 02/11/13 Cyanocobalamin [Vitamin B12 (*)] 1,000 mcg PO DAILY 04/01/16 DULoxetine [Cymbalta] 40 mg PO HS 04/01/16 Ferrous Sulfate [Ferrous Sulf 325 325 mg PO BIDMEAL 04/01/16 MG (*)] Herbals/Supplements -Info Only 1 ea PO DAILY 04/01/16 Pregabalin [LYRICA] 200 mg PO TID 04/01/16 Fenofibrate [Tricor 145 mg (*)] 145 mg PO DAILY 09/27/16 Insulin Detemir [Levemir] 22 unit SQ DAILY 09/27/16 Insulin Detemir [Levemir] 40 unit SQ HS 09/27/16 Esomeprazole Mag Trihydrate 40 mg PO DAILY #30 09/28/16 [Nexium] Lisinopril [Zestril 40 mg (*)] 20 mg PO DAILY #30 tab 10/08/16 Atorvastatin Calcium [Lipitor 20 20 mg PO DAILY 10/19/16 mg (*)] oxyCODONE HCL/ACETAMINOPHEN 1 each PO Q8 10/19/16 [Percocet 10-325 mg Tablet] Medical Decision Making Differential Diagnosis: Differential considered including but not limited to skin breakdown, upper GI bleed, lower GI bleed, erosion into vessel near ostomy site, coagulopathy. Consult/Admit Bed Type: [place] 2100, [place] 2115 Critical Care Time: Critical care time spent by me, Dr. Rhodes, exclusively with the care of this patient was 30 minutes, exclusive of PA or GARDE MANGER time and exclusive of separate procedures. The organ system at risk was gastrointestinal and hematologic and I ordered multiple diagnostic studies, emergency transfusion of packed red blood cells, discussion with hospitalist and dictaphone operator; to stabilize the patient and prevent worsening of the patient's condition. - Data Points Laboratory Results: Laboratory Results 10/19/16 20:25 10/19/16 20:25 10/19/16 20:25 Patient ABO/Rh O POSITIVE Antibody Screen NEGATIVE Crossmatch IS Only See Detail Medications Given: Atorvastatin Calcium (Lipitor) 20 mg PO DAILY CHRISTINA Stop: 04/18/17 08:59 Last Admin: 10/20/16 12:27 Dose: 20 mg Duloxetine HCl (Cymbalta) 40 mg PO HS CHRISTINA Stop: 04/17/17 23:29 Last Admin: 10/19/16 23:30 Dose: 40 mg Fenofibrate (Tricor) 145 mg PO DAILY CHRISTINA Stop: 04/18/17 08:59 Last Admin: 10/20/16 12:26 Dose: 145 mg Ferrous Sulfate (Ferrous Sulfate) 325 mg PO BIDMEAL CHRISTINA Stop: 04/18/17 07:59 Last Admin: 10/20/16 12:27 Dose: 325 mg Sodium Chloride (Ns) 1,000 mls @ 150 mls/hr IV CONT CHRISTINA Stop: 04/17/17 22:44 Last Admin: 10/20/16 06:46 Dose: 1,000 mls Insulin Human Regular (Humulin R) 0 unit SC ACHS CHRISTINA PRN Reason: Protocol Stop: 04/18/17 07:29 Last Admin: 10/20/16 14:53 Dose: Not Given Pantoprazole Sodium (Protonix) 40 mg PO DAILY CHRISTINA Stop: 04/18/17 08:59 Last Admin: 10/20/16 09:41 Dose: 40 mg Pregabalin (Lyrica) 200 mg PO TID CHRISTINA Stop: 04/17/17 23:29 Last Admin: 10/20/16 09:40 Dose: 200 mg Vitamin B Complex (Vitamin B12) 1,000 mcg PO DAILY [facility] Stop: 04/18/17 08:59 Last Admin: 10/20/16 12:26 Dose: 1,000 mcg Discontinued Medications Miscellaneous Medication (Insulin Detemir [Levemir]) 22 unit SQ DAILY CHRISTINA Stop: 04/18/17 08:59 Last Admin: 10/20/16 12:17 Dose: 22 units Miscellaneous Medication (Insulin Detemir [Levemir]) 40 unit SQ HS CHRISTINA Stop: 04/17/17 23:44 Last Admin: 10/20/16 00:03 Dose: 40 units Oxycodone/Acetaminophen (Percocet 5/325) 2 tab PO EDNOW ONE Stop: 10/19/16 23:16 Last Admin: 10/19/16 23:40 Dose: 2 tab Silver Nitrate/Potassium Nitrate (Silver Nitrate Applicator) 1 each TP ONCE ONE Stop: 10/20/16 09:04 Last Admin: 10/20/16 09:38 Dose: 1 each Silver Nitrate/Potassium Nitrate (Silver Nitrate Applicator) 1 each TP ONCE ONE Stop: 10/20/16 09:31 Last Admin: 10/20/16 11:38 Dose: Not Given Departure - Departure Disposition: [facility] Acute Clinical Impression: bleeding from ostomy Anemia Qualifiers: Anemia type: unspecified type Qualified Code(s): D64.9 - Anemia, unspecified Condition: Serious
[2016-10-19 20:43] LABS: ADD DIFF? NO; ADD SCAN? NO
[2016-10-19 21:07] LABS: ANION GAP 8 mEq/L (8-16); CALCIUM 8.5 mg/dL (8.5-10.4); CARBON DIOXIDE 22 mEq/l (22-31); CHLORIDE 108 mEq/L (97-110); CREATININE 1.4 mg/dL (0.7-1.3); GLOMERULAR FILTRATION RATE 51; GLUCOSE 152 mg/dL (70-100); POTASSIUM 5.7 mEq/L (3.5-5.2); SODIUM 138 mEq/L (134-144)
--- NOTE | 2016-10-19 21:08 | CPEKG ---
Heart Rate: 91 RR Interval: 659 P-R Interval: 184 QRSD Interval: 82 QT Interval: 348 QTC Interval: 429 P Rio: 17 QRS Rio: 38 T Wave Rio: 53 EKG Severity - NORMAL ECG - EKG Impression: SINUS RHYTHM Electronically Signed By: Clyde Rhodes 19-Oct-2016 21:09:18
[2016-10-19 21:28] LABS: % IMMATURE GRANULYOCYTES 1.5 % (0.0-1.1); ABSOLUTE IMMATURE GRANULOCYTES 0.08 10^3/uL (0.00-0.10); ABSOLUTE NRBC COUNT 0.07 10^3/uL (0-0.01); ADD DIFF? NO; ADD MORPH? YES; ADD SCAN? NO; ATYPICAL LYMPHOCYTE FLAG 20 (0-99); FRAGMENT RBC FLAG 20 (0-99); LEFT SHIFT FLG 10 (0-99); LIPEMIA HEMOLYSIS FLAG 70 (0-99); MEAN CELL HEMOGLOBIN 28.4 pg (27.9-34.1); MEAN CELL VOLUME 100.6 fL (81.5-99.8); MEAN PLATELET VOLUME 11.9 fL (8.7-11.7); PLATELET CLUMPS FLAG 0 (0-99); PLATELET COUNT 122 10^3/uL (150-400); RED BLOOD CELL COUNT 1.62 10^6/uL (4.40-6.38); RED CELL DISTRIBUTION WIDTH 17.4 % (11.5-15.2)
[2016-10-19 21:30] LABS: MEAN CELL HEMOGLOBIN CONCENTR. 28.2 g/dL (32.4-36.7); NRBC-AUTO% 1.3 % (0.0-0.2)
[2016-10-19 21:31] LABS: HEMOGLOBIN 4.6 g/dL (13.7-17.5)
[2016-10-19 21:32] LABS: HEMATOCRIT 16.3 % (40.0-51.0)
[2016-10-19 21:40] LABS: ANION GAP 8 mEq/L (8-16); CALCIUM 8.7 mg/dL (8.5-10.4); CARBON DIOXIDE 21 mEq/l (22-31); CHLORIDE 107 mEq/L (97-110); CREATININE 1.4 mg/dL (0.7-1.3); GLOMERULAR FILTRATION RATE 51; GLUCOSE 141 mg/dL (70-100); POTASSIUM 5.5 mEq/L (3.5-5.2); SODIUM 136 mEq/L (134-144)
[2016-10-19 21:55] LABS: INR 1.15 (0.83-1.16); PROTIME(PATIENT) 14.6 SEC (12.0-15.0)
[2016-10-19 21:56] LABS: APTT 22.9 SEC (23.0-38.0)
[2016-10-19 22:12] LABS: HYPOCHROMIA 2+; MACROCYTES 1+; PLATELET ESTIMATE DECREASED (ADEQ); POLYCHROMASIA 1+; STOMATOCYTES 1+
[2016-10-19] MEDS ORDERED: ONDANSETRON DISINTEGRATING 4 MG TAB PO PRN (22:31)
[2016-10-19] MEDS ORDERED: ONDANSETRON 4 MG/2 ML VIAL IVP PRN (22:31)
[2016-10-19] MEDS ORDERED: ACETAMINOPHEN 325 MG TAB PO PRN (22:31)
[2016-10-19] MEDS ORDERED: D50W 25 GM/50 ML SYR IVP PRN (22:35)
[2016-10-19] MEDS ORDERED: OXYCODONE/APAP 5/325 TAB PO ONE (23:15)
[2016-10-19] MEDS: PREGABALIN 100 MG CAP PO SCH (23:29)
[2016-10-19] MEDS: DULoxetine 20 MG CAP PO SCH (23:30)
[2016-10-19] MEDS ORDERED: oxyCODONE IR 5 MG TAB PO PRN (23:43)
[2016-10-19] MEDS ORDERED: Insulin Detemir [Levemir] 40 UNIT SQ SCH (23:45)
--- NOTE | 2016-10-19 23:48 | PDGENHP ---
History and Physical - Chief Complaint Acute bleeding - History of Present Illness Primary care provider: Dr. Patton Primary mail carrier and clerk: Dr. Ebenezer Martinez HPI: 61-year-old male presenting with acute bleeding characterized as blood spraying strongly from his ostomy site with onset of symptoms on the night prior to this presentation, and associated dizziness and lightheadedness thereafter. The patient reports that his dizziness and lightheadedness have been exacerbated by standing, alleviated by lying still. Reports that the above situation occurred in the context of approximately 3 weeks of intermittent bleeding from the ostomy site. Reports that his has been able to see the area of visible blood, and it is described as bright red. Since his discharge on 10/08/2016, the patient has not been seen by Gastroenterology, and he has not reinitiate his aspirin or Effient. History Information - Allergies/Home Medication List Allergies/Adverse Reactions: morphine Allergy (Severe, Verified 10/19/16 18:46) Anaphylaxis clopidogrel Allergy (Verified 10/19/16 18:46) Swelling/neck,face,throat levofloxacin Allergy (Verified 10/19/16 18:46) Unknown Penicillins Allergy (Verified 10/19/16 18:46) Swelling/neck,face,throat bisulfate Allergy (Uncoded 01/25/13 08:32) Home Medications: metFORMIN HCL [Glucophage 1000 mg] 1,000 mg PO BIDMEAL 01/25/13 [Last Taken 07/30] Insulin Lispro [Humalog] 20 - 26 unit SQ BIDMEAL 02/11/13 [Last Taken 10/19/16] Cyanocobalamin [Vitamin B12 (*)] 1,000 mcg PO DAILY 04/01/16 [Last Taken ] DULoxetine [Cymbalta] 40 mg PO HS 04/01/16 [Last Taken 10/18/16] Ferrous Sulfate [Ferrous Sulf 325 MG (*)] 325 mg PO BIDMEAL 04/01/16 [Last Taken 10/19/16] Herbals/Supplements -Info Only 1 ea PO DAILY 04/01/16 [Last Taken 10/19/16] Pregabalin [LYRICA] 200 mg PO TID 04/01/16 [Last Taken 10/19/16] Fenofibrate [Tricor 145 mg (*)] 145 mg PO DAILY 09/27/16 [Last Taken 10/19/16] Insulin Detemir [Levemir] 22 unit SQ DAILY 09/27/16 [Last Taken 10/19/16] Insulin Detemir [Levemir] 40 unit SQ HS 09/27/16 [Last Taken 10/18/16] Atorvastatin Calcium [Lipitor 20 mg (*)] 20 mg PO DAILY 10/19/16 [Last Taken 07/30] oxyCODONE HCL/ACETAMINOPHEN [Percocet 10-325 mg Tablet] 1 each PO Q8 10/19/16 [ Last Taken 10/18/16] I have personally reviewed and updated: family history, medical history, social history, surgical history - Past Medical History Additional medical history: Ostomy hemorrhage. Peripheral vascular disease. Diabetes mellitus type 2. Neuropathy. Hypertension. Colon cancer. Hyperlipidemia. Chronic kidney disease with baseline creatinine 1.1, stage III. Anemia - Surgical History Additional surgical history: Ostomy for colon cancer. Lower extremity stents. Fem-pop bypass - Family History Additional family history: No history of venous thromboembolism - Social History Smoking Status: Former smoker Alcohol Use: None Drug Use: None Additional social history: Lives with , independent in ADLs Review of Systems Review of Systems: ROS: 10pt was reviewed & negative except for what was stated in HPI & below Gastrointestinal: Reports: other (Bleeding from ostomy site) Neurological: Reports: other (Dizziness lightheadedness) Physical Exam Physical Exam: Temp Pulse Resp BP Pulse Ox 36.7 C 93 18 111/55 L 100 10/19/16 23:21 10/19/16 23:21 10/19/16 23:21 10/19/16 23:21 10/19/16 23:21 O2 (L/minute) 2 Constitutional: no apparent distress, not in pain, other (Pale appearing), No uncomfortable Eyes: PERRL, anicteric sclera, EOMI, pale conjunctiva Ears, Nose, Mouth, Throat: hearing normal, ears appear normal, no oral mucosal ulcers, other (Tacky mucous membranes) Cardiovascular: systolic murmur (2/6 at all valve location), No irregularly irregular, No tachycardia, No edema Respiratory: no respiratory distress, no rales or rhonchi, clear to auscultation Gastrointestinal: normoactive bowel sounds, soft, non-tender abdomen, no palpable masses, other (Ostomy bag left lower quadrant) Skin: other (No erythema, ecchymosis, bleeding around the ostomy bag site) Neurologic: AAOx3, weakness (4/5 motor strength bilateral lower extremities), No sensation intact bilaterally (Paresthesia distal to the bilateral knees) Psychiatric: interacting appropriately, not anxious, not encephalopathic, thought process linear, flat affect Lab Data & Imaging Review 10/19/16 21:10 10/19/16 21:10 WBC 5.28 10^3/uL (3.80-9.50) 10/19/16 21:10 RBC 1.62 10^6/uL (4.40-6.38) L 10/19/16 21:10 Hgb 4.6 g/dL (13.7-17.5) L* 10/19/16 21:10 Hct 16.3 % (40.0-51.0) L* 10/19/16 21:10 MCV 100.6 fL (81.5-99.8) H 10/19/16 21:10 MCH 28.4 pg (27.9-34.1) 10/19/16 21:10 MCHC 28.2 g/dL (32.4-36.7) L 10/19/16 21:10 RDW 17.4 % (11.5-15.2) H 10/19/16 21:10 Plt Count 122 10^3/uL (150-400) L 10/19/16 21:10 MPV 11.9 fL (8.7-11.7) H 10/19/16 21:10 Neut % (Auto) 49.8 % (39.3-74.2) 10/19/16 21:10 Lymph % (Auto) 37.9 % (15.0-45.0) 10/19/16 21:10 Traverse % (Auto) 7.2 % (4.5-13.0) 10/19/16 21:10 Eos % (Auto) 3.2 % (0.6-7.6) 10/19/16 21:10 Baso % (Auto) 0.4 % (0.3-1.7) 10/19/16 21:10 Nucleat RBC Rel Count 1.3 % (0.0-0.2) H 10/19/16 21:10 Absolute Neuts (auto) 2.63 10^3/uL (1.70-6.50) 10/19/16 21:10 Absolute Lymphs (auto) 2.00 10^3/uL (1.00-3.00) 10/19/16 21:10 Absolute Monos (auto) 0.38 10^3/uL (0.30-0.80) 10/19/16 21:10 Absolute Eos (auto) 0.17 10^3/uL (0.03-0.40) 10/19/16 21:10 Absolute Basos (auto) 0.02 10^3/uL (0.02-0.10) 10/19/16 21:10 Absolute Nucleated RBC 0.07 10^3/uL (0-0.01) H 10/19/16 21:10 Immature Gran % 1.5 % (0.0-1.1) H 10/19/16 21:10 Immature Gran # 0.08 10^3/uL (0.00-0.10) 10/19/16 21:10 Platelet Estimate DECREASED (ADEQ) L 10/19/16 21:10 Polychromasia 1+ H 10/19/16 21:10 Hypochromasia 2+ H 10/19/16 21:10 Basophilic Stippling 2+ H 10/19/16 21:10 Oval Macrocytes 1+ H 10/19/16 21:10 Stomatocytes 1+ H 10/19/16 21:10 Smear Review By [facility] 10/19/16 20:25 Absolute Retic 0.202 10^6/uL (0.050-0.117) H 10/19/16 21:10 Percent Retic 12.63 % (0.98-2.67) H 10/19/16 21:10 Corrected Retic Count 4.6 % (0.6-2.6) H 10/19/16 21:10 PT 14.6 SEC (12.0-15.0) 10/19/16 21:10 INR 1.15 (0.83-1.16) 10/19/16 21:10 APTT 22.9 SEC (23.0-38.0) L 10/19/16 21:10 Sodium 136 mEq/L (134-144) 10/19/16 21:10 Potassium 5.5 mEq/L (3.5-5.2) H 10/19/16 21:10 Chloride 107 mEq/L (97-110) 10/19/16 21:10 Carbon Dioxide 21 mEq/l (22-31) L 10/19/16 21:10 Anion Gap 8 mEq/L (8-16) 10/19/16 21:10 BUN 31 mg/dL (7-23) H 10/19/16 21:10 Creatinine 1.4 mg/dL (0.7-1.3) H 10/19/16 21:10 Estimated GFR 51 10/19/16 21:10 Glucose 141 mg/dL (70-100) H 10/19/16 21:10 Calcium 8.7 mg/dL (8.5-10.4) 10/19/16 21:10 Vitamin B12 751 pg/mL (239-931) 10/19/16 21:10 Patient ABO/Rh O POSITIVE 10/19/16 20:25 Antibody Screen NEGATIVE 10/19/16 20:25 Crossmatch IS Only See Detail 10/19/16 20:25 Visualized and Interpreted EKG results: Yes EKG Interpretation: Positive for: normal sinsus rhythm Assessment & Plan Assessment: 61-year-old male presenting with acute recurrent ostomy site bleeding Plan: 1. Ostomy site bleeding. Acute, new problem this provider, further workup indicated. Evidenced by visible blood loss on the night prior to this presentation, with resultant hemoglobin level 5.3, described as brisk, without hemodynamic instability -transfusing 2 units packed red blood cells, repeat hemoglobin level thereafter -reviewed outside records including 10/08/[address] Jordyn Truong, reporting that the patient recently had a normal upper endoscopy, normal colonoscopy, received chemical cautery at the ostomy site, received 2 units packed red blood cells, was discharged off of aspirin and Effient -given microcytic component, will also add retic count and B12 level to presenting labs -will contact Gastroenterology and request consultation for ostomy site expiration, make NPO at this time -if Gastroenterology is unable to find the bleeding source, would recommend consulting with General surgery, as this is most likely an arterial bleed in the ostomy and endothelium 2. Acute blood loss anemia. Hemoglobin level 10/14 was 8.2 with an MCV of 94, currently declined to 5.3, requiring packed red cells -repeat hemoglobin level at 12:30 a.m., then again in a.m. 3. Acute kidney injury on Chronic kidney disease stage 3. Evidenced by rising serum creatinine level to 1.4 with BUN of 31, baseline creatinine is 1.1, measured on 10/14/2016 -secondary to volume loss with bleeding, give blood and IV fluids overnight, recheck in a.m. 4. Peripheral vascular disease. Patient's most recent stents were over 3 years ago, he is currently holding his aspirin and Effient, continue holding these medications given his acute bleeding -continue statin 5. Chronic pain with continuous opiate dependency. Continue patient's Lyrica, Cymbalta, oxycodone and Tylenol 6. Hypertension. Hold patient's lisinopril at this time, monitor blood pressure , consider restarting in a.m. 7. Diabetes mellitus type 2. Complicated by neuropathy, continue neuropathy medications, hold metformin given rising serum creatinine level, placed on insulin sliding scale 8. Coronary artery disease. Chronic, patient has 50% stenosis in his LAD as of cardiac catheterization 2012 Prophylaxis. High risk patient, farm contraindicated, SCDs contraindicated, monitor lower extremities Code. Full per patient, his is MPOA Diet. NPO at present Disposition. Anticipated discharge is 10/20, pending stability of bleeding, he will be upgraded to inpatient admission status if he requires further diagnostic workup or experiences recurring bleeding. I have discussed this presentation with Dr. Brent Ojeda, who signed out the patient to me the beginning of my shift.
[2016-10-20 00:50] LABS: HEMATOCRIT 22.1 % (40.0-51.0); HEMOGLOBIN 7.1 g/dL (13.7-17.5)
[2016-10-20] MEDS: NS 1,000 ML IV SCH ×2 (00:51→06:46)
[2016-10-20 03:53] LABS: HEMATOCRIT 21.9 % (40.0-51.0)
[2016-10-20 03:56] LABS: HEMOGLOBIN 6.8 g/dL (13.7-17.5)
[2016-10-20 04:10] LABS: ANION GAP 6 mEq/L (8-16); CARBON DIOXIDE 22 mEq/l (22-31); CHLORIDE 113 mEq/L (97-110); CREATININE 1.2 mg/dL (0.7-1.3); GLOMERULAR FILTRATION RATE > 60; GLUCOSE 102 mg/dL (70-100); MAGNESIUM 1.3 mg/dL (1.6-2.3); SODIUM 141 mEq/L (134-144)
[2016-10-20] MEDS ORDERED: NON-FORMULARY NEW DRUG (Oxycodone Hcl/Acetaminophen [Percocet 10-325 Mg Tablet] 1 EACH) PO SCH (06:00)
[2016-10-20] MEDS ORDERED: Herbals/Supplements -Info Only PO SCH (09:00)
[2016-10-20] MEDS ORDERED: SILVER NITRATE APPLICATOR 1 APPL TP ONE ×2 (09:03→09:30)
[2016-10-20] MEDS: PREGABALIN 100 MG CAP PO SCH ×3 (09:40→21:57)
[2016-10-20] MEDS: PANTOPRAZOLE SODIUM 40 MG TAB PO SCH (09:41)
[2016-10-20] MEDS: INSULIN REGULAR HUMAN 100 UNIT/ML SC SCH ×4 (11:37→21:58)
[2016-10-20] MEDS: INSULIN DETEMIR 22 UNIT SQ SCH ×2 (11:37→12:17)
[2016-10-20] MEDS: FENOFIBRATE 145 MG TAB PO SCH (12:26)
[2016-10-20] MEDS: CYANO/VITAMIN B12 1000 MCG TAB PO SCH (12:26)
[2016-10-20] MEDS: FERROUS SULFATE 325 MG TAB PO SCH ×2 (12:27→18:36)
[2016-10-20] MEDS: ATORVASTATIN CALCIUM 20 MG TAB PO SCH (12:27)
[2016-10-20] MEDS ORDERED: PROTOCOL MAGNESIUM 1 DOSE IV PRN (15:01)
[2016-10-20] MEDS ORDERED: MAGNESIUM SULF 2 GM/WATER 50 ML IV ONE (15:30)
[2016-10-20 17:00] LABS: HEMATOCRIT 22.8 % (40.0-51.0); HEMOGLOBIN 7.4 g/dL (13.7-17.5)
--- NOTE | 2016-10-20 17:06 | HOSPPROG ---
Hospitalist Progress Note Assessment/Plan: 61-year-old who presented yesterday with ostomy bleeding he is status post 2 units PRBCs his hemoglobin now is 7.4. He has had a repeat episode leading today of a mild degree where he soak the blood of his apply a of his bandage and on his ostomy appliance. He was unaware of this bleeding. Patient is new to me today. 1. Ostomy site bleeding. Acute, new problem this provider, further workup indicated. Evidenced by visible blood loss on the night prior to this presentation, with resultant hemoglobin level 5.3, described as brisk, without hemodynamic instability. Patient has been seen by surgery today and cautery was performed at the ostomy site. Surgeries feeling is he is potentially traumatizing the stomal site with the ostomy appliance. If there is re- bleeding then GI will be consulted for repeat is scope of the area. 2. Acute blood loss anemia. Fell to 5.3 and he is status post 2 units PRBCs with a hemoglobin this afternoon at 7.4 without signs of active bleeding. 3. Acute kidney injury on Chronic kidney disease stage 3. Evidenced by rising serum creatinine level to 1.4 with BUN of 31, baseline creatinine is 1.1, measured on 10/14/2016 -secondary to volume loss with bleeding, give blood and IV fluids overnight, recheck in a.m. 4. Peripheral vascular disease. Patient's most recent stents were over 3 years ago, he is currently holding his aspirin and Effient, continue holding these medications given his acute bleeding -continue statin 5. Chronic pain with continuous opiate dependency. Continue patient's Lyrica, Cymbalta, oxycodone and Tylenol 6. Hypertension. Hold patient's lisinopril at this time, monitor blood pressure , consider restarting in a.m. 7. Diabetes mellitus type 2. Complicated by neuropathy, continue neuropathy medications, hold metformin given rising serum creatinine level, placed on insulin sliding scale 8. Coronary artery disease. Chronic, patient has 50% stenosis in his LAD as of cardiac catheterization 2012 Prophylaxis. High risk patient, farm contraindicated, SCDs contraindicated, monitor lower extremities Code. Full per patient, his is MPOA Subjective: Alert calm and sleeping at the time of my evaluation. He had no complaints. He was unaware that there had been a rebleed at his ostomy site. Objective: Vital Signs Temp Pulse Resp BP Pulse Ox 36.5 C 102 H 18 130/72 H 93 10/20/16 16:00 10/20/16 16:00 10/20/16 16:00 10/20/16 16:00 10/20/16 16:00 Laboratory Results 10/20/16 16:44 PT 14.6 SEC (12.0-15.0) 10/19/16 21:10 INR 1.15 (0.83-1.16) 10/19/16 21:10 - Time Spent With Patient Time Spent with Patient: greater than 35 minutes Time Spent with Patient: Greater than 35 minutes spent on this patients care, greater than 50% of time spent counseling, educating, and coordinating care regarding the above mentioned plan. - Pending Discharge Pending Discharge Within 24 Hours: No Pending Discharge Within 48 Hours: Yes Pending Discharge Date: 10/22/16 Pending Discharge Time: 11:00 - Physical Exam Constitutional: no apparent distress Eyes: PERRL, anicteric sclera Ears, Nose, Mouth, Throat: moist mucous membranes, hearing normal Cardiovascular: regular rate and rhythym, systolic murmur Respiratory: no respiratory distress, no rales or rhonchi, clear to auscultation , reduced air movement Gastrointestinal: normoactive bowel sounds, soft, non-tender abdomen, no palpable masses, other (Ostomy site showed some dark clots of blood in his underwear showed red blood without clotting. The bandage has been fully soaked. At the time my examination was no active bleeding but I could see the site where had been cauterized by surgery earlier in the day.) Genitourinary: no bladder fullness Skin: warm Musculoskeletal: full muscle strength Neurologic: AAOx3, CN II-XII Intact Psychiatric: interacting appropriately ICD10 Worksheet Patient Problems: Problems Problem Status Onset Anemia Acute GI bleed Acute Hypotension Acute Peripheral vascular disease Acute
[2016-10-20] MEDS ORDERED: Insulin Detemir [Levemir] 40 UNIT SQ SCH (21:00)
--- NOTE | 2016-10-20 21:47 | GCON ---
[f rep st] CONSULTATION DATE OF CONSULTATION: 10/20/2016 HISTORY OF PRESENT ILLNESS: The patient is a 61-year-old male, known to me, who presents with signif icant amount of bleeding from his stoma, which is there for a history of rectal cancer, status post a bdominoperineal resection. He has had the stoma for 15 years. He has had no difficulties with it, b ut has had 2 bouts of bleeding from the stomal edge in the last week when he has had areas cauterized . I was asked to consult on him for possible surgical intervention. He has had a colonoscopy and an upper GI endoscopy that revealed no source of bleeding, and he has not had issues similar to this be fore. In addition, he is not on any anticoagulation medicine. ALLERGIES: Morphine, Plavix, Levaquin, penicillin, bisulfate. PRESENT MEDICATIONS: Metformin, oxycodone, Lipitor, insulin, Tricor, Lyrica, iron, Cymbalta and anastasia min B12. PAST MEDICAL HISTORY: Diabetes, ostomy hemorrhage, peripheral vascular disease status post femoral-p opliteal bypass, neuropathy, hypertension, colorectal cancer, chronic renal disease, and anemia. He had abdominoperineal resection for his colon cancer and some peripheral stents. REVIEW OF SYSTEMS: Reveals no other major issues, including no present coronary symptoms. He is an ex-smoker. Full 10-point review of systems was nonrevealing. FAMILY HISTORY: Noncontributory. PHYSICAL EXAMINATION: GENERAL: An alert, cooperative, 61-year-old male in no acute distress. HEENT : His head and neck exam reveals no icterus. No adenopathy. No oral lesions. No thyromegaly. Pup ils are normal. CHEST: Clear and symmetric. CARDIAC: Regular rhythm. ABDOMEN: Soft, slightly pr otuberant with positive bowel sounds. He has an end-colostomy in the left lower quadrant. On exam o f his colostomy, he has some minor abrasions on the lower half of the colostomy edge, which may be th e bleeding source. These were cauterized during this evaluation, but no true active bleeding had juliane lly been seen by me. GENITALIA: Normal. EXTREMITIES: Benign with full range of motion, full pulses . SKIN: No major rashes or lesions. PSYCH: Reveals him to be oriented, alert, and cooperative. N EUROLOGIC: Exam is physiologic with some findings of bilateral neuropathy in his legs. IMPRESSIONS: Peristomal bleeding of uncertain etiology. The possibility of irritation or erosion of his appliance edge of the ostomy, but that seems somewhat unlikely in a patient with 15 y ears experience with his ostomy. Colonoscopy was unrevealing for any lower source of bleeding. I curry ve cauterized what I thought was a possible bleeding site, and we will have to follow him with you if further bleeding occurs. We may be able to suture ligate it if we can identify the exact bleeding s pot. /[id number]/MODL
[2016-10-20] MEDS: DULoxetine 20 MG CAP PO SCH (21:57)
[2016-10-21 05:15] LABS: HEMATOCRIT 23.5 % (40.0-51.0); HEMOGLOBIN 7.5 g/dL (13.7-17.5)
[2016-10-21 05:31] LABS: PFA COLLAGEN/EPINEPHRINE 115 sec (79-154)
[2016-10-21 05:34] LABS: ANION GAP 10 mEq/L (8-16); CALCIUM 8.8 mg/dL (8.5-10.4); CARBON DIOXIDE 20 mEq/l (22-31); CHLORIDE 109 mEq/L (97-110); CREATININE 1.1 mg/dL (0.7-1.3); GLOMERULAR FILTRATION RATE > 60; GLUCOSE 130 mg/dL (70-100); MAGNESIUM 1.5 mg/dL (1.6-2.3); POTASSIUM 4.9 mEq/L (3.5-5.2); SODIUM 139 mEq/L (134-144)
[2016-10-21] MEDS: PREGABALIN 100 MG CAP PO SCH (07:21)
--- NOTE | 2016-10-21 08:25 | HOSPPROG ---
Hospitalist Progress Note Assessment/Plan: 61-year-old who presented yesterday with ostomy bleeding he is status post 2 units PRBCs his hemoglobin now is 7.4. He has had a repeat episode leading today of a mild degree where he soak the blood of his apply a of his bandage and on his ostomy appliance. He was unaware of this bleeding. Patient is new to me today. 1. Ostomy site bleeding. Acute, new problem this provider, further workup indicated. Evidenced by visible blood loss on the night prior to this presentation, with resultant hemoglobin level 5.3, described as brisk, without hemodynamic instability. Patient has been seen by surgery today and cautery was performed at the ostomy site. Surgeries feeling is he is potentially traumatizing the stomal site with the ostomy appliance. If there is re- bleeding then GI will be consulted for repeat is scope of the area. 2. Acute blood loss anemia. Fell to 5.3 and he is status post 2 units PRBCs with a hemoglobin this afternoon at 7.4 without signs of active bleeding. 3. Acute kidney injury on Chronic kidney disease stage 3. Evidenced by rising serum creatinine level to 1.4 with BUN of 31, baseline creatinine is 1.1, measured on 10/14/2016 -secondary to volume loss with bleeding, give blood and IV fluids overnight, recheck in a.m. 4. Peripheral vascular disease. Patient's most recent stents were over 3 years ago, he is currently holding his aspirin and Effient, continue holding these medications given his acute bleeding -continue statin 5. Chronic pain with continuous opiate dependency. Continue patient's Lyrica, Cymbalta, oxycodone and Tylenol 6. Hypertension. Hold patient's lisinopril at this time, monitor blood pressure , consider restarting in a.m. 7. Diabetes mellitus type 2. Complicated by neuropathy, continue neuropathy medications, hold metformin given rising serum creatinine level, placed on insulin sliding scale 8. Coronary artery disease. Chronic, patient has 50% stenosis in his LAD as of cardiac catheterization 2012 Prophylaxis. High risk patient, farm contraindicated, SCDs contraindicated, monitor lower extremities Code. Full per patient, his is MPOA Objective: Vital Signs Temp Pulse Resp BP Pulse Ox 36.6 C 73 13 112/57 L 99 10/21/16 07:55 10/21/16 07:55 10/21/16 07:55 10/21/16 07:55 10/21/16 07:55 Laboratory Results 10/21/16 04:46 10/21/16 04:46 10/20/16 10/21/16 10/22/16 05:59 05:59 05:59 Intake Total 726 Output Total 7030 Balance -1547 PT 14.6 SEC (12.0-15.0) 10/19/16 21:10 INR 1.15 (0.83-1.16) 10/19/16 21:10 Laboratory Tests 10/20/16 10/20/16 10/20/16 00:30 03:45 16:44 Hgb 7.1 L 6.8 L 7.4 L Magnesium 10/21/16 10/21/16 04:46 04:46 Hgb 7.5 L Magnesium 1.5 L ICD10 Worksheet Patient Problems: Problems Problem Status Onset Peripheral vascular disease Acute Hypotension Acute GI bleed Acute Anemia Acute
[2016-10-21] MEDS ORDERED: INSULIN DETEMIR 22 UNIT SQ SCH (09:00)
[2016-10-21] MEDS: INSULIN REGULAR HUMAN 100 UNIT/ML SC SCH ×2 (09:13→13:28)
[2016-10-21] MEDS: FENOFIBRATE 145 MG TAB PO SCH (09:38)
[2016-10-21] MEDS: FERROUS SULFATE 325 MG TAB PO SCH (09:38)
[2016-10-21] MEDS: ATORVASTATIN CALCIUM 20 MG TAB PO SCH (09:39)
[2016-10-21] MEDS: CYANO/VITAMIN B12 1000 MCG TAB PO SCH (09:39)
[2016-10-21] MEDS: PANTOPRAZOLE SODIUM 40 MG TAB PO SCH (09:39)
[2016-10-21] MEDS ORDERED: MAGNESIUM SULF 1 GM/DEXTROSE 100 ML IV ONE (10:27)
--- NOTE | 2016-10-21 15:44 | SOAPPROG ---
SOAP Progress Note Assessment/Plan: Assessment: 61 yo male presenting with peristomal bleeding of uncertain etiology No further bleeding today. We will follow up with him in our office Dispo: to home from surgery standpoint. S: Feeling well today, no complaints. Denies further bleeding, SOB, lightheadedness. O: Patient sitting up in chair with lunch. NAD MMM No increased WOB Abdomen soft, nontender. Ostomy bag in place. Objective: Vital Signs Temp Pulse Resp BP Pulse Ox 36.6 C 87 16 111/62 93 10/21/16 12:00 10/21/16 12:00 10/21/16 12:00 10/21/16 12:00 10/21/16 12:00 Laboratory Results 10/21/16 04:46 10/21/16 04:46 10/20/16 10/21/16 10/22/16 05:59 05:59 05:59 Intake Total 1953 Output Total 3500 Balance -1547 PT 14.6 SEC (12.0-15.0) 10/19/16 21:10 INR 1.15 (0.83-1.16) 10/19/16 21:10 ICD10 Worksheet Patient Problems: Problems Problem Status Onset Anemia Acute GI bleed Acute Hypotension Acute Peripheral vascular disease Acute
[2016-10-21] MEDS ORDERED: PREGABALIN 100 MG CAP PO SCH ×2 (16:00→22:00)
[2016-10-21 16:18] VITALS: BP 125/67; PULSE 91; RESP 11; TEMP 98.4; O2SAT 99
--- NOTE | 2016-10-21 16:29 | GDS ---
[f rep st] DISCHARGE SUMMARY NEW AND ACUTE DIAGNOSES ON THIS ADMISSION: 1. Acute bleeding from the colostomy site. 2. Acute blood loss anemia, with a fall of hemoglobin to 5.3. The patient received packed red blood cell transfusions. 3. Acute kidney injury secondary to hypovolemia and bleeding. 4. Peripheral vascular disease. 5. Chronic pain syndrome with chronic continuous opioid dependency. 6. Hypertension. 7. Diabetes mellitus type 2. CHRONIC DIAGNOSES: 1. Coronary artery disease. 2. Hypertension. 3. Peripheral vascular disease. CONSULTATION: Surgery. PROCEDURES: Sever nitrate was used to cauterize the bleeding site at his ostomy site. Another consu ltation was with the ostomy service, who found no difficulty with the appliance. HOSPITAL COURSE: This is a 61-year-old male who experienced significant bleeding from his colostomy site. His hemoglobin fell to 4.6, and he received 2 units of PRBCs successfully without incident. H is hemoglobin floyd to 7.5, and at that point appeared stable. There was a small oozing site noted al abraham the mucosa of the ostomy and was cauterized with silver nitrate by Dr. Koffi Crouch. No further bleeding of significance was noted. His hemoglobin seems stable without any evidence of bleeding fo r the next 24 hours. The ostomy service evaluated his ostomy site for possible trauma, but found no difficulties or proble ms. I discussed the problem with the patient and reported that if he has further minor bleeding to s julianne Crouch, and if he has very significant bleeding to return immediately to the emergency departhi nt. DISCHARGE MEDICATIONS: These are the same as his initial and admission medication and as follows: 1. Metformin 1000 mg b.i.d. 2. Humalog insulin 20 to 26 units b.i.d. with meals. 3. Herbal supplementation. 4. Ferrous sulfate 325 mg b.i.d. 5. Vitamin B12 1000 mcg. 6. Lyrica 200 mg t.i.d. 7. Cymbalta 40 mg h.s. 8. TriCor 145 mg daily. 9. Detemir insulin 22 units subcu daily and 40 units subcu h.s. 10. Nexium 40 mg daily. 11. Lisinopril 20 mg daily. 12. Lipitor 20 mg daily. 13. Percocet 10/325 mg tablet, 1 tablet p.o. q.6 hours p.r.n. PLAN: The gentleman, if he has significant bleeding, will return immediately to the emergency depart ment. If he has oozing, he will see Dr. Crouch. His followup will be with his PCP, Dr. Dinesh Patton, as needed, and also with Dr. Koffi Crouch. TIME: This discharge required 45 minutes, greater than 50% to parliamentary counsel and coordinate the gentleman's care, explain matters and his appropriate followup given his situation. /[id number]/MODL
--- NOTE | 2016-10-23 17:06 | ASDISCHSUM ---
Discharge Information Plan Status:Home with Home Health Medically Cleared to Leave:10/21/2016 Discharge Date:10/21/2016 04:50 PM CM D/C Disposition:Home, Routine, Self-Care ADT D/C Disposition:Home, Routine, Self-Care Projected Discharge Date:10/21/2016 12:00 AM Transportation at D/C: Discharge Delay Reason: Follow-Up Date:10/21/2016 12:00 AM Discharge Slot: Final Diagnosis: Placement Information Patient Contact Information Contact Name:JACKELINCHRISTY Relationship:Other Address:[facility] [address] [place] Phone: State/Zip Code:[place] [address] Email: Financial Information Financial Class: Primary Plan Desc:MEDICARE INPATIENT Primary Plan Number:[id number] Secondary Plan Desc:[employer]/M[employer] SUPPLEMENT Secondary Plan Number:[id number] Assessment Information [facility] CM Progress Note CM Note CM Note Notes: CM reviewed chart, pt will most likely discharge without any needs. CM available for any changes. CM to follow. Date Signed: 10/20/2016 03:26 PM Electronically Signed By:Deloris Martinez Intervention Information Intervention Type:*Occurence 72 Date of Service:10/19/2016 10:31 PM Patient Type:Inpatient Staff Member:Edna Dimas Hours:0.25 Discipline: Severity:1 (0-1 Hours) Comment:Occ 72 for 10/19/2016 as patient blanco rged 10/21/1026 16:03 (< 2 MN LOS after patie nt admission status changed from observation to inpatient)
== END 2016-10-21 16:50 | disposition home or self-care (01) | DRG 394 ==
LOC: INTOOBSV 20:59 → F3E 10-20 02:00 → OBSVTOIN 10-20 14:52
PROVIDERS: ADMIT Student in an Organized Health Care Education/Training Program; ATTEND Student in an Organized Health Care Education/Training Program
PROC: 30233N1 Transfusion of Nonautologous Red Blood Cells into Peripheral Vein, Percutaneous Approach (ICD-10-PCS; 2016-10-19)
PROC: 0H57XZZ Destruction of Abdomen Skin, External Approach (ICD-10-PCS; principal; 2016-10-20)
DX: K94.01 Colostomy hemorrhage (principal); D62 Acute posthemorrhagic anemia; N17.9 Acute kidney failure, unspecified; N18.3 Chronic kidney disease, stage 3 (moderate); I12.9 Hypertensive chronic kidney disease with stage 1 through stage 4 chronic kidney disease, or unspecified chronic kidney disease; I73.9 Peripheral vascular disease, unspecified; G89.29 Other chronic pain; F11.20 Opioid dependence, uncomplicated; E11.9 Type 2 diabetes mellitus without complications; I25.10 Atherosclerotic heart disease of native coronary artery without angina pectoris
CPT/HCPCS: 82607-90; 97165-GO; G0378; G8987-GO-CI; G8988-GO-CI; G8989-GO-CI; J1815; J3475; P9016

== ENCOUNTER → 2017-03-28 | Outpatient (CLI) | payer OTHER | LOC: CIMAGING 08:05 | PROVIDERS: ATTEND Internal Medicine Hematology & Oncology | DX: K76.9 Liver disease, unspecified (principal); Z85.038 Personal history of other malignant neoplasm of large intestine | CPT/HCPCS: 76700-PO ==

== ENCOUNTER → 2018-06-29 | Outpatient (CLI) | payer OTHER | LOC: EMCIMAGING 08:45 | PROVIDERS: ATTEND Internal Medicine Hematology & Oncology | DX: R93.2 Abnormal findings on diagnostic imaging of liver and biliary tract (principal); K76.0 Fatty (change of) liver, not elsewhere classified; N28.1 Cyst of kidney, acquired | CPT/HCPCS: 76700-PN ==